=== PATIENT | female | born 1945 | race Caucasian/White ===

== ENCOUNTER 2022-03-06 13:00 | Outpatient (RCR) | payer OTHER, SELFPAY ==
[2022-02-11 13:47] VITALS: BP 160/69; PULSE 76; TEMP 35.7; BMI 34.9
--- NOTE | 2022-02-11 15:13 | HP.PCM_ITS ---
History of Present Illness Date of Service: 02/11/22 Chief Complaint: Non healing left anterior hip incision after hip replacement History of Wound: Patient had a hip replacement on 01/14/[address] Singh. She states that she has no pain and is walking well with a walker. Her left anterior hip incision last week. Two weeks postop the incision was intact but erythematous. The patient was initially were cleaning the incision with peroxide. They they were instructed to stop that at the two week follow up visit and instructed to keep the incision dry and covered. She has been taking Doxycycline since her surgery. Patient has history of osteoarthritis, Afib, cardiomyopathy, bilateral cataract, HTN. Her daughter states that the patient has had some vaginal bleeding since her surgery and she has had an ultrasound and their PCP, Dr. Heredia told them yesterday that he believes it is cancer and is being referring the patient to a specialist. Current wound care is a dry dressing. Patient denies fever, chills, nausea or vomiting. She states her appetite has been ok. [facility] Medical History (Updated 02/11/22 @ 16:17 by Maisha Fenton NP, GUEST SERVICES MANAGER-C) Atrial fibrillation Cardiomyopathy Cardiovascular disease Cataract Essential (primary) hypertension GERD (gastroesophageal reflux disease) Mitral valve regurgitation Osteoarthritis Right arm fracture Family History (Updated 02/11/22 @ 15:50 by Maisha Fenton NP, GUEST SERVICES MANAGER-C) Father Heart disease Mother Diabetes Sister Cancer Grandmother CVA (cerebral vascular accident) Surgical History History of left hip replacement Social History Smoking Status: Never smoker alcohol intake: never substance use type: does not use ROS Constitutional Constitutional: Denies fever(s), frequent falls or headache(s) Eyes Eyes: Reports requires corrective lenses ENT HEENT: Reports hearing loss Cardiovascular Cardiovascular: Reports pedal edema; Denies chest pain, dizziness or dyspnea Respiratory/Chest Respiratory/Chest: Denies change in mental status, chest congestion, cough, shortness of breath at rest or wheezing Gastrointestinal Gastrointestinal: Reports systems reviewed and no addt'l complaints, except as documented; Denies nausea or vomiting Musculoskeletal Musculoskeletal: Reports arthralgias, joint pain, joint stiffness and joint swelling Integumentary Integumentary: Reports erythema and wounds Neurologic Neurologic: Denies dizziness, frequent falls or headache(s) Psychiatric Psychiatric: Reports none Endocrine Endocrinology: Reports systems reviewed and no addt'l complaints, except as documented Hematologic/Lymphatic Hematologic/Lymphatic: Reports easy bleeding and easy bruising Vital Signs Vital Signs Vital Signs: 02/11/22 13:47 Temperature 96.3 F L Temperature Source Temporal Pulse Rate 76 Blood Pressure 160/69 H Blood Pressure Mean 99 Blood Pressure Source Monitor Weight Weight: 230 lb Body Mass Index (BMI) 34.9 Physical Exam Const alert and no apparent distress General Appearance: cooperative, comfortable and well kempt HEENT normocephalic HEENT Narrative: wears hearing aids and dentures Eyes Eyes Narrative: Wears glasses. Neck full ROM Resp normal respiratory effort, normal air movement and clear to auscultation bilaterally Effort and Inspection: able to speak in complete sentences Cardio regular rate and regular rhythm Peripheral Pulses: posterior tibial pulses present bilateral 1+ GI normal to inspection, nondistended, normoactive bowel sounds and soft to palpation Extremity Extremity Narrative: Left lower leg and ankle +3 pitting edema. Right leg and ankle has +2 pitting edema. Peripheral Pulses: Yes posterior tibial pulses present bilateral 1+ Skin Wound Narrative: Left anterior hip incision is erythematous, puffy, non painful to palpation. There are 3 incisional separations with a tunnel in the the proximal wound. There is a large amount of serosanguineous drainage coming from the proximal wound, as if there were a seroma present. The medial wound cluster and the distal wound are stable, there is some non viable tissue present. Neuro moves all extremities Sensorium / Orientation: awake, alert and oriented to person Psych mental status grossly normal, cooperative and affect normal Debridement Note Debridement Note Wound debrided: superior ulcer Laterality: Left Type of Debridement: Excisional debridement Anesthesia Used: 5% Lidocaine Gel Depth: Down to and including healthy tissue and in the subcutaneous layer Percentage of wound debrided: 100 Instrument Used: 3mm curette Tissue Removed: Non viable tissue and slough Severity: Fat Layer Exposed Amount of bleeding with debridement: Mild Bleeding Controlled with: Pressure and Compression and gauze Patient tolerated procedure: Patient tolerated procedure well Post-Debridement Measurements and Additional Note: Post-Debridement Measurements/Treatment WC - Nurse 1 - General Ulcer Assessment Start: 02/11/22 13:46 Freq: Status: Active Protocol: TATE Activity Type Activity Date Activity User E-sign Co-sign Detail Recorded Client Recorded Date Recorded By Document 02/11/22 13:47 OLGA LIDIA [id number] 02/11/22 14:00 [place] 02/11/22 13:47 WC - Today's Visit Information Type of service Initial Visit Arrival Mode Ambulatory, Walker Patient Identification Verified (Name & Yes ) Patient Requires Transmission-Based No Precautions Safety Precautions NA Height and Weight Height 5 ft 8 in Weight 230 lb Weight in Pounds 230.0 lbs Body Mass Index (BMI) 34.9 BMI Classification Obese BSA - Shahid 2.17 Vital Signs Temperature (97.8 F-99.1 F) 96.3 F L Temperature Source Temporal Pulse Rate (60-100) 76 Pulse Location Monitor Blood Pressure (90/60-120/80) 160/69 H Blood Pressure Mean 99 Source Monitor History Since Last Visit- (Skip if this is Patient's initial visit) Have you changed medications since your No last visit? Any new allergies or adverse reactions No Had a fall/change in ADL's that may No increase risk of falls Signs or symptoms of abuse and/or No neglect since last visit Have you been in the hospital since your No last visit? Has dressing in place as prescribed Yes Has compression in place as prescribed N/A Has offloadiing in place as prescribed N/A Experienced any changes in pain level or No management Left Footwear Regular Shoe Right Footwear Regular Shoe Pain Scale: 0-10 Numeric Is Patient Pain Free? Yes - Nurse 1 - General Ulcer Measurement Start: 02/11/22 13:46 Freq: Status: Active Protocol: Activity Type Activity Date Activity User E-sign Co-sign Detail Recorded Client Recorded Date Recorded By Document 02/11/22 13:47 OLGA LIDIA [id number] 02/11/22 14:00 OLGA LIDIA 02/11/22 13:47 Wound Center Nurse 1 #3 L distal thigh -Combined with other wound No -Current Size (cm) - Length 5.1 -Current Size (cm) - Width 1.6 -Current Size (cm) - Depth 0.7 -Total Square Cm 8.16 -Date of Last Picture (Recall this 02/11/22 field) -Photo Taken Yes -Epithelialization Medium 34-66% -Tunneling No -Undermining/Tunneling No -Circular Undermining No -Change in Wound Grade/Stage No -Exudate Amt Medium -Exudate Type Serosanguineous -Wound Margin Distinct, Outline Attached -Granulation Amt None Present (0 %) -Granulation Quality N/A -Slough/Fibrin No -Necrosis Amt None Present (0 %) -Necrotic Tissue Type Adherent Slough -Structure Exposed N/A -Texture (Emilie-wound Skin Appearance) Assessed, Scarring -Moisture (Emilie-wound Skin Appearance) No Abnormality, Assessed -Color (Emilie-wound Skin Appearance) No Abnormality, Assessed -Temperature (Emilie-wound Skin No Abnormality Appearance) (Pt Warm) -Tenderness on Palpation (Emilie-wound No Skin Appearance) -Ulcer Cleansing Soap and Water -Foul Odor after Cleansing No -Anesthetic Used 4% Lidocaine Solution,5% Lidocaine Gel #2 L middle thigh/hip -Combined with other wound No -Current Size (cm) - Length 3.9 -Current Size (cm) - Width 1.1 -Current Size (cm) - Depth 0.7 -Total Square Cm 4.29 -Date of Last Picture (Recall this 02/11/22 field) -Photo Taken Yes -Tunneling No -Undermining/Tunneling No -Circular Undermining No -Change in Wound Grade/Stage No -Exudate Amt Medium -Exudate Type Serosanguineous -Wound Margin Distinct, Outline Attached -Granulation Amt Small (1-33%) -Granulation Quality N/A -Slough/Fibrin No -Necrosis Amt Small (1-33%) -Necrotic Tissue Type Adherent Slough -Structure Exposed N/A -Texture (Emilie-wound Skin Appearance) Assessed, Scarring -Moisture (Emilie-wound Skin Appearance) No Abnormality, Assessed -Color (Emilie-wound Skin Appearance) No Abnormality, Assessed -Temperature (Emilie-wound Skin No Abnormality Appearance) (Pt Warm) -Tenderness on Palpation (Emilie-wound No Skin Appearance) -Ulcer Cleansing Soap and Water -Foul Odor after Cleansing No -Anesthetic Used 4% Lidocaine Solution,5% Lidocaine Gel #1 superior thigh/hip -Combined with other wound No -Current Size (cm) - Length 1.3 -Current Size (cm) - Width 1.1 -Current Size (cm) - Depth 3.7 -Total Square Cm 1.43 -Date of Last Picture (Recall this 02/11/22 field) -Photo Taken Yes -Epithelialization None Present -Tunneling No -Undermining/Tunneling No -Circular Undermining No -Change in Wound Grade/Stage No -Exudate Amt Large -Exudate Type Serosanguineous -Wound Margin Distinct, Outline Attached -Granulation Amt None Present (0 %) -Granulation Quality N/A -Slough/Fibrin Yes -Necrosis Amt Large (67-100%) -Necrotic Tissue Type Adherent Slough -Structure Exposed N/A -Texture (Emilie-wound Skin Appearance) Assessed, Scarring -Moisture (Emilie-wound Skin Appearance) Assessed, Weeping -Color (Emilie-wound Skin Appearance) No Abnormality, Assessed -Temperature (Emilie-wound Skin No Abnormality Appearance) (Pt Warm) -Tenderness on Palpation (Emilie-wound No Skin Appearance) -Ulcer Cleansing Soap and Water -Foul Odor after Cleansing No -Anesthetic Used 4% Lidocaine Solution,5% Lidocaine Gel WC - Nurse 2 - General Ulcer CM Notes Start: 02/11/22 13:46 Freq: Status: Active Protocol: Activity Type Activity Date Activity User E-sign Co-sign Detail Recorded Client Recorded Date Recorded By Document 02/11/22 14:12 [id number] 02/11/22 14:24 KAITLIN 02/11/22 14:12 Wound Center Nurse 2 #3 L distal thigh -Time 14:15 -Correct Patient Yes -Correct Side, Site, Position Yes -Correct Procedure Yes -Procedure Performed Yes -Type of Procedure Debridement -Clinical Debridement Subcutaneous -Tissue Removed Subcutaneous -Post Debridement (cm) - Length 2.2 -Post Debridement (cm) - Width 1.1 -Post Debridement (cm) - Depth 1.3 -Total Square (Post) (cm) 2.42 -Area of Debridement (cm) - Length 2.2 -Area of Debridement (cm) - Width 1.1 -Total Square (Area) (cm) 2.42 -Tunneling No -Undermining/Tunneling No -Circular Undermining No -Wound/Ulcer Outcome Not Healed -Ulcer Cleansing Rinsed/ Irrigated with Saline -Foul Odor after Cleansing No -Bioengineered Tissue No -Bleeding Controlled with Pressure -Treatment Response Procedure Tolerated Well -Offloading No -Debridement - Subq, 1st 20sq cm Yes #2 L middle thigh/hip -Time 14:15 -Correct Patient Yes -Correct Side, Site, Position Yes -Correct Procedure Yes -Procedure Performed Yes -Type of Procedure Debridement -Clinical Debridement Subcutaneous -Tissue Removed Subcutaneous -Post Debridement (cm) - Length 4.9 -Post Debridement (cm) - Width 1.8 -Post Debridement (cm) - Depth 0.9 -Total Square (Post) (cm) 8.82 -Area of Debridement (cm) - Length 4.9 -Area of Debridement (cm) - Width 1.8 -Total Square (Area) (cm) 8.82 -Tunneling No -Undermining/Tunneling No -Circular Undermining No -Wound/Ulcer Outcome Not Healed -Ulcer Cleansing Rinsed/ Irrigated with Saline -Foul Odor after Cleansing No -Bioengineered Tissue No -Bleeding Controlled with Pressure -Treatment Response Procedure Tolerated Well -Offloading No -Debridement - Subq, 1st 20sq cm No #1 superior thigh/hip -Time 14:15 -Correct Patient Yes -Correct Side, Site, Position Yes -Correct Procedure Yes -Procedure Performed Yes -Type of Procedure Debridement -Clinical Debridement Subcutaneous -Tissue Removed Subcutaneous -Post Debridement (cm) - Length 1.4 -Post Debridement (cm) - Width 1.0 -Post Debridement (cm) - Depth 4.0 -Total Square (Post) (cm) 1.40 -Area of Debridement (cm) - Length 1.4 -Area of Debridement (cm) - Width 1.0 -Total Square (Area) (cm) 1.40 -Tunneling No -Undermining/Tunneling No -Circular Undermining No -Wound/Ulcer Outcome Not Healed -Ulcer Cleansing Rinsed/ Irrigated with Saline -Foul Odor after Cleansing No -Bioengineered Tissue No -Bleeding Controlled with Pressure -Treatment Response Procedure Tolerated Well -Offloading No -Debridement - Subq, 1st 20sq cm No Pain Scale: 0-10 Numeric Is Patient Pain Free? Yes WC - Nurse 3 - General Ulcer D/C NN Start: 02/11/22 13:46 Freq: Status: Active Protocol: Activity Type Activity Date Activity User E-sign Co-sign Detail Recorded Client Recorded Date Recorded By Document 02/11/22 14:40 [facility] [id number] 02/11/22 14:42 [facility] 02/11/22 14:40 Wound Care Nurse 3 #3 L distal thigh -Ulcer Cleansing Rinsed/ Irrigated with Saline -Foul Odor after Cleansing No -Primary Dressing Applied Aquacel AG 4x4 -Primary Dressing Covered/Secured with Secured with Tape,Other -Other Covering ABD, DRSG 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 [place] 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 -Aquacel AG 4x4 1 #2 L middle thigh/hip -Ulcer Cleansing Rinsed/ Irrigated with Saline -Foul Odor after Cleansing No -Primary Dressing Applied Aquacel AG 4x4 -Other Dressing DRSG PER [place] 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 -Primary Dressing Covered/Secured with Secured with Tape -Other Covering ABD -Aquacel AG 4x4 0 #1 superior thigh/hip -Ulcer Cleansing Rinsed/ Irrigated with Saline -Foul Odor after Cleansing No -Primary Dressing Applied Aquacel AG 4x4 -Other Dressing WICKED INTO WOUND -Primary Dressing Covered/Secured with Secured with Tape,Other -Other Covering ABD; DRSG PER [place] 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 -Aquacel AG 4x4 0 Treatment Response Procedure Tolerated Well Pain Scale: 0-10 Numeric Is Patient Pain Free? Yes WC - Visit Discharge Discharge Condition Stable Ambulatory Status Ambulatory, Walker Transportation Private Auto Additional Wound Wound debrided: medial hip incion Laterality: Left Type of Debridement: Excisional debridement Anesthesia Used: 5% Lidocaine Gel Depth: Down to and including healthy tissue and in the subcutaneous layer Percentage of wound debrided: 100 Instrument Used: 5mm curette Tissue Removed: Non viable tissue and slough Severity: Fat Layer Exposed Amount of bleeding with debridement: Mild Bleeding Controlled with: Pressure and Compression and gauze Patient tolerated procedure: Patient tolerated procedure well Additional Wound Wound debrided: distal hip incision Laterality: Left Type of Debridement: Excisional debridement Anesthesia Used: 5% Lidocaine Gel Depth: Down to and including healthy tissue and in the subcutaneous layer Percentage of wound debrided: 100 Instrument Used: 5mm curette Tissue Removed: Non viable tissue and slough Severity: Fat Layer Exposed Amount of bleeding with debridement: Mild Bleeding Controlled with: Pressure and Compression and gauze Patient tolerated procedure: Patient tolerated procedure well Charges/Coding Visit Charges Office Visits / Consults: [id number] OV L4 New (25 modifier) Procedures Integumentary [id number]: [id number] Billie subq tissue 20 sq cm/< Assessment/Plan Assessment/Plan (1) Non-healing surgical wound: CODE(S): T81.89XA - Other complications of procedures, not elsewhere classified, initial encounter (2) History of left hip replacement: CODE(S): Z96.642 - Presence of left artificial hip joint (3) Current use of anticoagulant therapy: 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 A subcutaneous debridement was performed without difficulty. Patient has a left anterior hip incision with three areas of separation with the proximal wound draining a significant amount of serosanguineous drainage. Patient is currently taking Doxycycline prescribed from Dr. Singh. A wound culture was obtained today, 02/11/22, depending on the results of the culture, it may necessitate the need to change her antibiotic. Wound care - Wick Aquacel-Ag into the tunnel of the proximal wound. Place Aquacel-Ag into the base of the other two wounds, place ABD or super absorber pad over the wounds. Dressing changes should be performed daily after washing the area with soap and water. She is wearing bilateral lower leg compression stockings for compression. Encouraged increase protein intake and increasing Vitamin C intake. Patient has had vaginal bleeding since her hip replacement and they were told yesterday that her ultrasound was abnormal and it may be cancer. They are waiting to see a specialist to find out what the next step in this process is. Patient should follow up one week with Dr. Espinosa, but is not able to return on Thursday next week, so she can see me next week and see Dr. Espinosa the following week.
[2022-02-20 13:06] VITALS: BP 147/63; PULSE 62; RESP 16; TEMP 36.3; BMI 34.9
--- NOTE | 2022-02-20 15:15 | PCM.WC.PN ---
History of Present Illness Date of Service: 02/20/22 Chief Complaint: Non healing left anterior hip incision after hip replacement History of Wound: Patient had a hip replacement on 01/14/[address] Singh. She states that she has no pain and is walking well with a walker. Her left anterior hip incision last week. Two weeks postop the incision was intact but erythematous. The patient was initially were cleaning the incision with peroxide. They they were instructed to stop that at the two week follow up visit and instructed to keep the incision dry and covered. She has been taking Doxycycline since her surgery. Patient has history of osteoarthritis, Afib, cardiomyopathy, bilateral cataract, HTN. Her daughter states that the patient has had some vaginal bleeding since her surgery and she has had an ultrasound and their PCP, Dr. Heredia told them yesterday that he believes it is cancer and is being referring the patient to a specialist. Current wo Patient denies fever, chills, nausea or vomiting. She states her appetite has been ok. Objective Data Objective Data Vital Signs: Vital Signs Temp Pulse Resp BP O2 Del Method 97.3 F L 62 16 147/63 H Room Air 02/20/22 13:06 02/20/22 13:06 02/20/22 13:06 02/20/22 13:06 02/20/22 13:06 Oxygen Delivery Method Room Air Weight: 230 lb Body Mass Index (BMI) 34.9 Lab / Micro Data Micro: Microbiology 02/11/22 14:20 Wound Abcess - Hip Gram Stain - Final 02/11/22 14:20 Wound Abcess - Hip Wound Culture - Final Serratia fonticola Pseudomonas aeroginosa 02/11/22 14:20 Wound Abcess - Hip Anaerobic Culture - Final Anaerobic cocci Debridement Note Debridement Note Post-Debridement Measurements and Additional Note: Post-Debridement Measurements/Treatment WC - Nurse 1 - General Ulcer Assessment Start: 02/11/22 13:46 Freq: Status: Active Protocol: TATE Activity Type Activity Date Activity User E-sign Co-sign Detail Recorded Client Recorded Date Recorded By Document 02/11/22 13:47 AK [id number] 02/11/22 14:00 AK Document 02/20/22 13:06 [facility] [id number] 02/20/22 13:18 BMF 02/11/22 02/20/22 13:47 13:06 - Today's Visit Information Type of service Initial Visit Follow-up Visit (Physician/BEREAVEMENT PROGRAM COORDINATOR ) Arrival Mode Ambulatory, Ambulatory Walker Transfer Assistance None Accompanied by EMMA IN [facility] Patient Identification Verified (Name & Yes Yes ) Patient Requires Transmission-Based No No Precautions Safety Precautions NA Height and Weight Height 5 ft 8 in Weight 230 lb Weight in Pounds 230.0 lbs Body Mass Index (BMI) 34.9 34.9 BMI Classification Obese Obese BSA - Shahid 2.17 Vital Signs Temperature (97.8 F-99.1 F) 96.3 F L 97.3 F L Temperature Source Temporal Temporal Pulse Rate (60-100) 76 62 Pulse Location Monitor Monitor Respiratory Rate (12-18) 16 Respiratory rate source Observation Oxygen Delivery Method Room Air Blood Pressure (90/60-120/80) 160/69 H 147/63 H Blood Pressure Mean (mm Hg) 99 91 Source Monitor Monitor Position Sitting Blood Pressure Location Left Arm History Since Last Visit- (Skip if this is Patient's initial visit) Have you changed medications since your No No last visit? Any new allergies or adverse reactions No No Had a fall/change in ADL's that may No No increase risk of falls Signs or symptoms of abuse and/or No neglect since last visit Have you been in the hospital since your No No last visit? Has dressing in place as prescribed Yes Yes Has compression in place as prescribed N/A N/A Has offloadiing in place as prescribed N/A N/A Experienced any changes in pain level or No No management Left Footwear Regular Shoe Regular Shoe Right Footwear Regular Shoe Regular Shoe Pain Scale: 0-10 Numeric Is Patient Pain Free? Yes Yes - Nurse 1 - General Ulcer Measurement Start: 02/11/22 13:46 Freq: Status: Active Protocol: Activity Type Activity Date Activity User E-sign Co-sign Detail Recorded Client Recorded Date Recorded By Document 02/11/22 13:47 AR [id number] 02/11/22 14:00 AR Document 02/20/22 13:06 [facility] [id number] 02/20/22 13:18 [facility] 02/11/22 02/20/22 13:47 13:06 Wound Center Nurse 1 #3 L distal thigh -Combined with other wound No No -Current Size (cm) - Length 5.1 3.6 -Current Size (cm) - Width 1.6 1 -Current Size (cm) - Depth 0.7 0.5 -Total Square Cm 8.16 3.6 -Date of Last Picture (Recall this 02/11/22 field) -Photo Taken Yes No -Epithelialization Medium 34-66% None Present -Tunneling No No -Undermining/Tunneling No No -Circular Undermining No No -Change in Wound Grade/Stage No -Exudate Amt Medium Medium -Exudate Type Serosanguineous Serosanguineous -Wound Margin Distinct, Distinct, Outline Outline Attached Attached -Granulation Amt None Present (0 Large (67-100%) %) -Granulation Quality N/A Red -Slough/Fibrin No Yes -Necrosis Amt None Present (0 Small (1-33%) %) -Necrotic Tissue Type Adherent Slough Adherent Slough -Structure Exposed N/A -Texture (Emilie-wound Skin Appearance) Assessed, Assessed, Scarring Localized Edema ,Scarring -Moisture (Emilie-wound Skin Appearance) No Abnormality, Assessed Assessed -Color (Emilie-wound Skin Appearance) No Abnormality, Assessed, Assessed Erythema -Temperature (Emilie-wound Skin No Abnormality No Abnormality Appearance) (Pt Warm) (Pt Warm) -Tenderness on Palpation (Emilie-wound No No Skin Appearance) -Ulcer Cleansing Soap and Water Soap and Water -Foul Odor after Cleansing No No -Anesthetic Used 4% Lidocaine 4% Lidocaine Solution,5% Solution Lidocaine Gel #2 L middle thigh/hip -Combined with other wound No No -Current Size (cm) - Length 3.9 4.4 -Current Size (cm) - Width 1.1 1.3 -Current Size (cm) - Depth 0.7 0.4 -Total Square Cm 4.29 5.72 -Date of Last Picture (Recall this 02/11/22 field) -Photo Taken Yes No -Epithelialization None Present -Tunneling No No -Undermining/Tunneling No No -Circular Undermining No No -Change in Wound Grade/Stage No -Exudate Amt Medium Medium -Exudate Type Serosanguineous Serosanguineous -Wound Margin Distinct, Distinct, Outline Outline Attached Attached -Granulation Amt Small (1-33%) Large (67-100%) -Granulation Quality N/A [place] -Slough/Fibrin No Yes -Necrosis Amt Small (1-33%) Small (1-33%) -Necrotic Tissue Type Adherent Slough Adherent Slough -Structure Exposed N/A -Texture (Emilie-wound Skin Appearance) Assessed, Assessed, Scarring Localized Edema ,Scarring -Moisture (Emilie-wound Skin Appearance) No Abnormality, Assessed Assessed -Color (Emilie-wound Skin Appearance) No Abnormality, Assessed, Assessed Erythema -Temperature (Emilie-wound Skin No Abnormality No Abnormality Appearance) (Pt Warm) (Pt Warm) -Tenderness on Palpation (Emilie-wound No No Skin Appearance) -Ulcer Cleansing Soap and Water Soap and Water -Foul Odor after Cleansing No No -Anesthetic Used 4% Lidocaine 4% Lidocaine Solution,5% Solution Lidocaine Gel #1 superior thigh/hip -Combined with other wound No No -Current Size (cm) - Length 1.3 1 -Current Size (cm) - Width 1.1 0.4 -Current Size (cm) - Depth 3.7 3.1 -Total Square Cm 1.43 0.4 -Date of Last Picture (Recall this 02/11/22 field) -Photo Taken Yes No -Epithelialization None Present None Present -Tunneling No No -Undermining/Tunneling No No -Circular Undermining No No -Change in Wound Grade/Stage No -Exudate Amt Large Large -Exudate Type Serosanguineous Serosanguineous -Wound Margin Distinct, Distinct, Outline Outline Attached Attached -Granulation Amt None Present (0 Medium (34-66%) %) -Granulation Quality N/A Red -Slough/Fibrin Yes Yes -Necrosis Amt Large (67-100%) Medium (34-66%) -Necrotic Tissue Type Adherent Slough Adherent Slough -Structure Exposed N/A -Texture (Emilie-wound Skin Appearance) Assessed, Assessed, Scarring Localized Edema ,Scarring -Moisture (Emilie-wound Skin Appearance) Assessed, Assessed Weeping -Color (Emilie-wound Skin Appearance) No Abnormality, Assessed, Assessed Erythema -Temperature (Emilie-wound Skin No Abnormality No Abnormality Appearance) (Pt Warm) (Pt Warm) -Tenderness on Palpation (Emilie-wound No No Skin Appearance) -Ulcer Cleansing Soap and Water Soap and Water -Foul Odor after Cleansing No No -Anesthetic Used 4% Lidocaine 4% Lidocaine Solution,5% Solution Lidocaine Gel WC - Nurse 2 - General Ulcer CM Notes Start: 02/11/22 13:46 Freq: Status: Active Protocol: Activity Type Activity Date Activity User E-sign Co-sign Detail Recorded Client Recorded Date Recorded By Document 02/11/22 14:12 [id number] 02/11/22 14:24 JF Document 02/20/22 13:27 MW [id number] 02/20/22 13:35 MW 02/11/22 02/20/22 14:12 13:27 Wound Center Nurse 2 #3 L distal thigh -Time 14:15 13:28 -Correct Patient Yes Yes -Correct Side, Site, Position Yes Yes -Correct Procedure Yes Yes -Procedure Performed Yes Yes -Type of Procedure Debridement Debridement -Clinical Debridement Subcutaneous Subcutaneous -Tissue Removed Subcutaneous Subcutaneous -Post Debridement (cm) - Length 2.2 3.0 -Post Debridement (cm) - Width 1.1 1.1 -Post Debridement (cm) - Depth 1.3 0.9 -Total Square (Post) (cm) 2.42 3.30 -Area of Debridement (cm) - Length 2.2 3.0 -Area of Debridement (cm) - Width 1.1 1.1 -Total Square (Area) (cm) 2.42 3.30 -Tunneling No No -Undermining/Tunneling No No -Circular Undermining No No -Wound/Ulcer Outcome Not Healed Not Healed -Ulcer Cleansing Rinsed/ Rinsed/ Irrigated with Irrigated with Saline Saline -Foul Odor after Cleansing No No -Bioengineered Tissue No No -Bleeding Controlled with Pressure Pressure -Treatment Response Procedure Procedure Tolerated Well Tolerated Well -Offloading No No -Debridement - Subq, 1st 20sq cm Yes Yes #2 L middle thigh/hip -Time 14:15 13:28 -Correct Patient Yes Yes -Correct Side, Site, Position Yes Yes -Correct Procedure Yes Yes -Procedure Performed Yes Yes -Type of Procedure Debridement Debridement -Clinical Debridement Subcutaneous Subcutaneous -Tissue Removed Subcutaneous Subcutaneous -Post Debridement (cm) - Length 4.9 4.5 -Post Debridement (cm) - Width 1.8 1.5 -Post Debridement (cm) - Depth 0.9 0.6 -Total Square (Post) (cm) 8.82 6.75 -Area of Debridement (cm) - Length 4.9 4.5 -Area of Debridement (cm) - Width 1.8 1.5 -Total Square (Area) (cm) 8.82 6.75 -Tunneling No No -Undermining/Tunneling No No -Circular Undermining No No -Wound/Ulcer Outcome Not Healed Not Healed -Ulcer Cleansing Rinsed/ Rinsed/ Irrigated with Irrigated with Saline Saline -Foul Odor after Cleansing No No -Bioengineered Tissue No No -Bleeding Controlled with Pressure Pressure -Treatment Response Procedure Procedure Tolerated Well Tolerated Well -Offloading No No -Debridement - Subq, 1st 20sq cm No No #1 superior thigh/hip -Time 14:15 13:29 -Correct Patient Yes Yes -Correct Side, Site, Position Yes Yes -Correct Procedure Yes Yes -Procedure Performed Yes Yes -Type of Procedure Debridement Debridement -Clinical Debridement Subcutaneous Subcutaneous -Tissue Removed Subcutaneous Subcutaneous -Post Debridement (cm) - Length 1.4 1.1 -Post Debridement (cm) - Width 1.0 0.8 -Post Debridement (cm) - Depth 4.0 3.0 -Total Square (Post) (cm) 1.40 0.88 -Area of Debridement (cm) - Length 1.4 1.1 -Area of Debridement (cm) - Width 1.0 0.8 -Total Square (Area) (cm) 1.40 0.88 -Tunneling No No -Undermining/Tunneling No No -Circular Undermining No No -Wound/Ulcer Outcome Not Healed Not Healed -Ulcer Cleansing Rinsed/ Rinsed/ Irrigated with Irrigated with Saline Saline -Foul Odor after Cleansing No No -Bioengineered Tissue No No -Bleeding Controlled with Pressure Pressure -Treatment Response Procedure Procedure Tolerated Well Tolerated Well -Offloading No No -Debridement - Subq, 1st 20sq cm No No Pain Scale: 0-10 Numeric Is Patient Pain Free? Yes Yes WC - Nurse 3 - General Ulcer D/C NN Start: 02/11/22 13:46 Freq: Status: Active Protocol: Activity Type Activity Date Activity User E-sign Co-sign Detail Recorded Client Recorded Date Recorded By Document 02/11/22 14:40 [facility] [id number] 02/11/22 14:42 BMF Document 02/20/22 13:50 DL [id number] 02/20/22 13:51 DL 02/11/22 02/20/22 14:40 13:50 Wound Care Nurse 3 #3 L distal thigh -Ulcer Cleansing Rinsed/ Rinsed/ Irrigated with Irrigated with Saline Saline -Foul Odor after Cleansing No No -Primary Dressing Applied Aquacel AG 4x4 Aquacel AG 4x4 -Primary Dressing Covered/Secured with Secured with Secured with Tape,Other Tape -Other Covering ABD, DRSG PER ABD [place] [employer] -Aquacel AG 4x4 1 1 #2 L middle thigh/hip -Ulcer Cleansing Rinsed/ Rinsed/ Irrigated with Irrigated with Saline Saline -Foul Odor after Cleansing No No -Primary Dressing Applied Aquacel AG 4x4 -Other Dressing DRSG PER [place] [employer] Aquacel Ag -Primary Dressing Covered/Secured with Secured with Secured with Tape Tape -Other Covering ABD ABD -Aquacel AG 4x4 0 #1 superior thigh/hip -Ulcer Cleansing Rinsed/ Rinsed/ Irrigated with Irrigated with Saline Saline -Foul Odor after Cleansing No No -Primary Dressing Applied Aquacel AG 4x4 -Other Dressing WICKED INTO aquacel Ag WOUND -Primary Dressing Covered/Secured with Secured with Secured with Tape,Other Tape -Other Covering ABD; DRSG PER ABD [place] [employer] -Aquacel AG 4x4 0 Treatment Response Procedure Procedure Tolerated Well Tolerated Well Pain Scale: 0-10 Numeric Is Patient Pain Free? Yes Yes WC - Visit Discharge Discharge Condition Stable Stable Ambulatory Status Ambulatory, Ambulatory, Walker Walker Transportation Private Auto Private Auto
[2022-03-06 13:15] VITALS: BP 167/74; PULSE 72; TEMP 35.6; BMI 34.9
--- NOTE | 2022-03-06 16:16 | PN.PCM_ITS ---
History of Present Illness Date of Service: 03/06/22 Chief Complaint: Non healing left anterior hip incision after hip replacement History of Wound: Patient had a hip replacement on 01/14/[address] Singh. She states that she has no pain and is walking well with a walker. Her left anterior hip incision last week. Two weeks postop the incision was intact but erythematous. The patient was initially were cleaning the incision with peroxide. They they were instructed to stop that at the two week follow up visit and instructed to keep the incision dry and covered. She has been taking Doxycycline since her surgery. Patient has history of osteoarthritis, Afib, cardiomyopathy, bilateral cataract, HTN. Her daughter states that the patient has had some vaginal bleeding since her surgery and she has had an ultrasound and their PCP, Dr. Heredia told them that he believes it is cancer and is being referring the patient to a specialist. Wound care - Aquacel-Ag to all three left hip ulcers and packed into the base of the superior hip ulcer, cover with ABD. Patient denies fever, chills, nausea or vomiting. She states her appetite has been ok. Progress of Wound: All three ulcers improved. Middle and distal ulcers are superficial. Objective Data Objective Data Vital Signs: Vital Signs Temp Pulse Resp BP O2 Del Method 96.1 F L 72 16 167/74 H Room Air 03/06/22 13:15 03/06/22 13:15 02/20/22 13:06 03/06/22 13:15 02/20/22 13:06 Oxygen Delivery Method Room Air Weight: 230 lb Body Mass Index (BMI) 34.9 Lab / Micro Data Micro: Microbiology 02/11/22 14:20 Wound Abcess - Hip Gram Stain - Final 02/11/22 14:20 Wound Abcess - Hip Wound Culture - Final Serratia fonticola Pseudomonas aeroginosa 02/11/22 14:20 Wound Abcess - Hip Anaerobic Culture - Final Anaerobic cocci Charges/Coding Procedures Integumentary [id number]: [id number] Billie subq tissue 20 sq cm/< Physical Exam Const alert General Appearance: cooperative and well kempt Resp normal respiratory effort Effort and Inspection: able to speak in complete sentences Cardio regular rate Peripheral Pulses: posterior tibial pulses present bilateral 1+ Extremity Extremity Narrative: Bilateral lower leg edema. Peripheral Pulses: Yes posterior tibial pulses present bilateral 1+ Skin Wound Narrative: Left anterior hip incision with 3 separations, the erythema has resolved. There continues to be depth on the superior wound, the middle and distal wounds are superficial depth. Neuro moves all extremities Sensorium / Orientation: awake and alert Psych mental status grossly normal Debridement Note Debridement Note Wound debrided: superior hip wound Laterality: Left Type of Debridement: Excisional debridement Anesthesia Used: 5% Lidocaine Gel Depth: Down to and including healthy tissue and in the subcutaneous layer Percentage of wound debrided: 100 Instrument Used: 3mm curette Tissue Removed: Non viable tissue and slough Severity: Fat Layer Exposed Amount of bleeding with debridement: Mild Bleeding Controlled with: Pressure and Compression and gauze Patient tolerated procedure: Patient tolerated procedure well Post-Debridement Measurements and Additional Note: Post-Debridement Measurements/Treatment - Nurse 1 - General Ulcer Assessment Start: 02/11/22 13:46 Freq: Status: Active Protocol: TATE Activity Type Activity Date Activity User E-sign Co-sign Detail Recorded Client Recorded Date Recorded By Document 02/11/22 13:47 MS [id number] 02/11/22 14:00 MS Document 02/20/22 13:06 [facility] [id number] 02/20/22 13:18 [facility] Document 03/06/22 13:15 MS [id number] 03/06/22 13:20 MS 02/11/22 02/20/22 03/06/22 13:47 13:06 13:15 - Today's Visit Information Type of service Initial Visit Follow-up Visit Follow-up Visit (Physician/BRIQUETTE MACHINE OPERATOR HELPER (Physician/BRIQUETTE MACHINE OPERATOR HELPER ) ) Arrival Mode Ambulatory, Ambulatory Walker Walker Transfer Assistance None Accompanied by EMMA IN LAW Patient Identification Verified (Name & Yes Yes Yes ) Patient Requires Transmission-Based No No No Precautions Safety Precautions NA NA Height and Weight Height 5 ft 8 in Weight 230 lb Weight in Pounds 230.0 lbs Body Mass Index (BMI) 34.9 34.9 34.9 BMI Classification Obese Obese Obese BSA - Shahid 2.17 Vital Signs Temperature (97.8 F-99.1 F) 96.3 F L 97.3 F L 96.1 F L Temperature Source Temporal Temporal Temporal Pulse Rate (60-100) 76 62 72 Pulse Location Monitor Monitor Monitor Respiratory Rate (12-18) 16 Respiratory rate source Observation Oxygen Delivery Method Room Air Blood Pressure (90/60-120/80) 160/69 H 147/63 H 167/74 H Blood Pressure Mean (mm Hg) 99 91 105 Source Monitor Monitor Monitor Position Sitting Blood Pressure Location Left Arm History Since Last Visit- (Skip if this is Patient's initial visit) Have you changed medications since your No No No last visit? Any new allergies or adverse reactions No No No Had a fall/change in ADL's that may No No No increase risk of falls Signs or symptoms of abuse and/or No No neglect since last visit Have you been in the hospital since your No No No last visit? Has dressing in place as prescribed Yes Yes Yes Has compression in place as prescribed N/A N/A N/A Has offloadiing in place as prescribed N/A N/A N/A Experienced any changes in pain level or No No No management Left Footwear Regular Shoe Regular Shoe Regular Shoe Right Footwear Regular Shoe Regular Shoe Regular Shoe Pain Scale: 0-10 Numeric Is Patient Pain Free? Yes Yes Yes - Nurse 1 - General Ulcer Measurement Start: 02/11/22 13:46 Freq: Status: Active Protocol: Activity Type Activity Date Activity User E-sign Co-sign Detail Recorded Client Recorded Date Recorded By Document 02/11/22 13:47 MS [id number] 02/11/22 14:00 MS Document 02/20/22 13:06 [facility] [id number] 02/20/22 13:18 [facility] Document 03/06/22 13:15 MS [id number] 03/06/22 13:20 MS 02/11/22 02/20/22 03/06/22 13:47 13:06 13:15 Wound Center Nurse 1 #3 L distal thigh -Combined with other wound No No No -Current Size (cm) - Length 5.1 3.6 2.5 -Current Size (cm) - Width 1.6 1 1.3 -Current Size (cm) - Depth 0.7 0.5 0.2 -Total Square Cm 8.16 3.6 3.25 -Date of Last Picture (Recall this 02/11/22 field) -Photo Taken Yes No No -Epithelialization Medium 34-66% None Present -Tunneling No No No -Undermining/Tunneling No No No -Circular Undermining No No No -Change in Wound Grade/Stage No No -Exudate Amt Medium Medium Large -Exudate Type Serosanguineous Serosanguineous Serosanguineous -Wound Margin Distinct, Distinct, Distinct, Outline Outline Outline Attached Attached Attached -Granulation Amt None Present (0 Large (67-100%) Large (67-100%) %) -Granulation Quality N/A Red [place],Red -Slough/Fibrin No Yes Yes -Necrosis Amt None Present (0 Small (1-33%) Small (1-33%) %) -Necrotic Tissue Type Adherent Slough Adherent Slough Adherent Slough -Structure Exposed N/A N/A -Texture (Emilie-wound Skin Appearance) Assessed, Assessed, No Abnormality, Scarring Localized Edema Assessed ,Scarring -Moisture (Emilie-wound Skin Appearance) No Abnormality, Assessed No Abnormality, Assessed Assessed -Color (Emilie-wound Skin Appearance) No Abnormality, Assessed, No Abnormality, Assessed Erythema Assessed -Temperature (Emilie-wound Skin No Abnormality No Abnormality No Abnormality Appearance) (Pt Warm) (Pt Warm) (Pt Warm) -Tenderness on Palpation (Emilie-wound No No No Skin Appearance) -Ulcer Cleansing Soap and Water Soap and Water Soap and Water -Foul Odor after Cleansing No No No -Anesthetic Used 4% Lidocaine 4% Lidocaine 5% Lidocaine Solution,5% Solution Gel Lidocaine Gel #2 L middle thigh/hip -Combined with other wound No No No -Current Size (cm) - Length 3.9 4.4 4 -Current Size (cm) - Width 1.1 1.3 1.1 -Current Size (cm) - Depth 0.7 0.4 0.2 -Total Square Cm 4.29 5.72 4.4 -Date of Last Picture (Recall this 02/11/22 field) -Photo Taken Yes No No -Epithelialization None Present -Tunneling No No No -Undermining/Tunneling No No No -Circular Undermining No No No -Change in Wound Grade/Stage No No -Exudate Amt Medium Medium Medium -Exudate Type Serosanguineous Serosanguineous Serosanguineous -Wound Margin Distinct, Distinct, Distinct, Outline Outline Outline Attached Attached Attached -Granulation Amt Small (1-33%) Large (67-100%) Large (67-100%) -Granulation Quality N/A [place],Red -Slough/Fibrin No Yes Yes -Necrosis Amt Small (1-33%) Small (1-33%) Small (1-33%) -Necrotic Tissue Type Adherent Slough Adherent Slough Adherent Slough -Structure Exposed N/A N/A -Texture (Emilie-wound Skin Appearance) Assessed, Assessed, No Abnormality, Scarring Localized Edema Assessed ,Scarring -Moisture (Emilie-wound Skin Appearance) No Abnormality, Assessed No Abnormality, Assessed Assessed -Color (Emilie-wound Skin Appearance) No Abnormality, Assessed, No Abnormality, Assessed Erythema Assessed -Temperature (Emilie-wound Skin No Abnormality No Abnormality No Abnormality Appearance) (Pt Warm) (Pt Warm) (Pt Warm) -Tenderness on Palpation (Emilie-wound No No No Skin Appearance) -Ulcer Cleansing Soap and Water Soap and Water Rinsed/ Irrigated with Saline -Foul Odor after Cleansing No No No -Anesthetic Used 4% Lidocaine 4% Lidocaine 5% Lidocaine Solution,5% Solution Gel Lidocaine Gel #1 superior thigh/hip -Combined with other wound No No No -Current Size (cm) - Length 1.3 1 1 -Current Size (cm) - Width 1.1 0.4 0.5 -Current Size (cm) - Depth 3.7 3.1 2.8 -Total Square Cm 1.43 0.4 0.5 -Date of Last Picture (Recall this 02/11/22 field) -Photo Taken Yes No No -Epithelialization None Present None Present -Tunneling No No No -Undermining/Tunneling No No No -Circular Undermining No No No -Change in Wound Grade/Stage No No -Exudate Amt Large Large Medium -Exudate Type Serosanguineous Serosanguineous Serosanguineous -Wound Margin Distinct, Distinct, Distinct, Outline Outline Outline Attached Attached Attached -Granulation Amt None Present (0 Medium (34-66%) Medium (34-66%) %) -Granulation Quality N/A Red [place],Red -Slough/Fibrin Yes Yes Yes -Necrosis Amt Large (67-100%) Medium (34-66%) Small (1-33%) -Necrotic Tissue Type Adherent Slough Adherent Slough Adherent Slough -Structure Exposed N/A N/A -Texture (Emilie-wound Skin Appearance) Assessed, Assessed, No Abnormality, Scarring Localized Edema Assessed ,Scarring -Moisture (Emilie-wound Skin Appearance) Assessed, Assessed No Abnormality, Weeping Assessed -Color (Emilie-wound Skin Appearance) No Abnormality, Assessed, No Abnormality, Assessed Erythema Assessed -Temperature (Emilie-wound Skin No Abnormality No Abnormality No Abnormality Appearance) (Pt Warm) (Pt Warm) (Pt Warm) -Tenderness on Palpation (Emilie-wound No No No Skin Appearance) -Ulcer Cleansing Soap and Water Soap and Water Rinsed/ Irrigated with Saline -Foul Odor after Cleansing No No No -Anesthetic Used 4% Lidocaine 4% Lidocaine 5% Lidocaine Solution,5% Solution Gel Lidocaine Gel WC - Nurse 2 - General Ulcer CM Notes Start: 02/11/22 13:46 Freq: Status: Active Protocol: Activity Type Activity Date Activity User E-sign Co-sign Detail Recorded Client Recorded Date Recorded By Document 02/11/22 14:12 JF [id number] 02/11/22 14:24 JF Document 02/20/22 13:27 MW [id number] 02/20/22 13:35 MW Document 03/06/22 15:51 PL [id number] 03/06/22 15:54 PL 02/11/22 02/20/22 03/06/22 14:12 13:27 15:51 Wound Center Nurse 2 #3 L distal thigh -Time 14:15 13:28 13:30 -Correct Patient Yes Yes Yes -Correct Side, Site, Position Yes Yes Yes -Correct Procedure Yes Yes Yes -Procedure Performed Yes Yes Yes -Type of Procedure Debridement Debridement Debridement -Clinical Debridement Subcutaneous Subcutaneous Subcutaneous -Tissue Removed Subcutaneous Subcutaneous Subcutaneous -Post Debridement (cm) - Length 2.2 3.0 2.2 -Post Debridement (cm) - Width 1.1 1.1 1.5 -Post Debridement (cm) - Depth 1.3 0.9 0.5 -Total Square (Post) (cm) 2.42 3.30 3.30 -Area of Debridement (cm) - Length 2.2 3.0 2.2 -Area of Debridement (cm) - Width 1.1 1.1 1.5 -Total Square (Area) (cm) 2.42 3.30 3.30 -Tunneling No No No -Undermining/Tunneling No No No -Circular Undermining No No No -Wound/Ulcer Outcome Not Healed Not Healed Not Healed -Ulcer Cleansing Rinsed/ Rinsed/ Rinsed/ Irrigated with Irrigated with Irrigated with Saline Saline Saline -Foul Odor after Cleansing No No No -Bioengineered Tissue No No No -Bleeding Controlled with Pressure Pressure Pressure -Treatment Response Procedure Procedure Procedure Tolerated Well Tolerated Well Tolerated Well -Offloading No No -Debridement - Subq, 1st 20sq cm Yes Yes No #2 L middle thigh/hip -Time 14:15 13:28 13:30 -Correct Patient Yes Yes Yes -Correct Side, Site, Position Yes Yes Yes -Correct Procedure Yes Yes Yes -Procedure Performed Yes Yes Yes -Type of Procedure Debridement Debridement Debridement -Clinical Debridement Subcutaneous Subcutaneous Subcutaneous -Tissue Removed Subcutaneous Subcutaneous Subcutaneous -Post Debridement (cm) - Length 4.9 4.5 3.8 -Post Debridement (cm) - Width 1.8 1.5 1.4 -Post Debridement (cm) - Depth 0.9 0.6 0.5 -Total Square (Post) (cm) 8.82 6.75 5.32 -Area of Debridement (cm) - Length 4.9 4.5 3.8 -Area of Debridement (cm) - Width 1.8 1.5 1.4 -Total Square (Area) (cm) 8.82 6.75 5.32 -Tunneling No No No -Undermining/Tunneling No No No -Circular Undermining No No No -Wound/Ulcer Outcome Not Healed Not Healed Not Healed -Ulcer Cleansing Rinsed/ Rinsed/ Rinsed/ Irrigated with Irrigated with Irrigated with Saline Saline Saline -Foul Odor after Cleansing No No No -Bioengineered Tissue No No No -Bleeding Controlled with Pressure Pressure Pressure -Treatment Response Procedure Procedure Procedure Tolerated Well Tolerated Well Tolerated Well -Offloading No No -Debridement - Subq, 1st 20sq cm No No No #1 superior thigh/hip -Time 14:15 13:29 13:30 -Correct Patient Yes Yes Yes -Correct Side, Site, Position Yes Yes Yes -Correct Procedure Yes Yes Yes -Procedure Performed Yes Yes Yes -Type of Procedure Debridement Debridement Debridement -Clinical Debridement Subcutaneous Subcutaneous Subcutaneous -Tissue Removed Subcutaneous Subcutaneous Subcutaneous -Post Debridement (cm) - Length 1.4 1.1 1.0 -Post Debridement (cm) - Width 1.0 0.8 0.5 -Post Debridement (cm) - Depth 4.0 3.0 2.3 -Total Square (Post) (cm) 1.40 0.88 0.50 -Area of Debridement (cm) - Length 1.4 1.1 1.0 -Area of Debridement (cm) - Width 1.0 0.8 0.5 -Total Square (Area) (cm) 1.40 0.88 0.50 -Tunneling No No No -Undermining/Tunneling No No No -Circular Undermining No No No -Wound/Ulcer Outcome Not Healed Not Healed Not Healed -Ulcer Cleansing Rinsed/ Rinsed/ Rinsed/ Irrigated with Irrigated with Irrigated with Saline Saline Saline -Foul Odor after Cleansing No No No -Bioengineered Tissue No No No -Bleeding Controlled with Pressure Pressure Pressure -Treatment Response Procedure Procedure Procedure Tolerated Well Tolerated Well Tolerated Well -Offloading No No -Debridement - Subq, 1st 20sq cm No No Yes Pain Scale: 0-10 Numeric Is Patient Pain Free? Yes Yes Yes WC - Nurse 3 - General Ulcer D/C NN Start: 02/11/22 13:46 Freq: Status: Active Protocol: Activity Type Activity Date Activity User E-sign Co-sign Detail Recorded Client Recorded Date Recorded By Document 02/11/22 14:40 [facility] [id number] 02/11/22 14:42 [facility] Document 02/20/22 13:50 DL [id number] 02/20/22 13:51 DL Document 03/06/22 13:48 KR [id number] 03/06/22 13:48 KR 02/11/22 02/20/22 03/06/22 14:40 13:50 13:48 Wound Care Nurse 3 #3 L distal thigh -Ulcer Cleansing Rinsed/ Rinsed/ Rinsed/ Irrigated with Irrigated with Irrigated with Saline Saline Saline -Foul Odor after Cleansing No No -Primary Dressing Applied Aquacel AG 4x4 Aquacel AG 4x4 Aquacel AG 4x4 -Other Dressing abd pad -Primary Dressing Covered/Secured with Secured with Secured with Dry Gauze, Tape,Other Tape Secured with Tape -Other Covering ABD, DRSG PER ABD [place] FISCAL ACCOUNTANT -Aquacel AG 4x4 1 1 1 #2 L middle thigh/hip -Ulcer Cleansing Rinsed/ Rinsed/ Irrigated with Irrigated with Saline Saline -Foul Odor after Cleansing No No -Primary Dressing Applied Aquacel AG 4x4 -Other Dressing DRSG PER [place] FISCAL ACCOUNTANT Aquacel Ag -Primary Dressing Covered/Secured with Secured with Secured with Tape Tape -Other Covering ABD ABD -Aquacel AG 4x4 0 #1 superior thigh/hip -Ulcer Cleansing Rinsed/ Rinsed/ Irrigated with Irrigated with Saline Saline -Foul Odor after Cleansing No No -Primary Dressing Applied Aquacel AG 4x4 -Other Dressing WICKED INTO aquacel Ag WOUND -Primary Dressing Covered/Secured with Secured with Secured with Tape,Other Tape -Other Covering ABD; DRSG PER ABD [place] FISCAL ACCOUNTANT -Aquacel AG 4x4 0 Treatment Response Procedure Procedure Tolerated Well Tolerated Well Pain Scale: 0-10 Numeric Is Patient Pain Free? Yes Yes Yes WC - Visit Discharge Discharge Condition Stable Stable Stable Ambulatory Status Ambulatory, Ambulatory, Ambulatory, Walker Walker Walker Transportation Private Auto Private Auto Private Auto Additional Wound Wound debrided: medial hip wound Laterality: Left Type of Debridement: Excisional debridement Anesthesia Used: 5% Lidocaine Gel Depth: Down to and including healthy tissue and in the subcutaneous layer Percentage of wound debrided: 100 Instrument Used: 5mm curette Tissue Removed: Non viable tissue and slough Severity: Fat Layer Exposed Amount of bleeding with debridement: Mild Bleeding Controlled with: Pressure and Compression and gauze Patient tolerated procedure: Patient tolerated procedure well Additional Wound Wound debrided: distal hip incisional wound Laterality: Left Type of Debridement: Excisional debridement Anesthesia Used: 5% Lidocaine Gel Depth: Down to and including healthy tissue and in the subcutaneous layer Percentage of wound debrided: 100 Instrument Used: 5mm curette Tissue Removed: Non viable tissue and slough Severity: Fat Layer Exposed Amount of bleeding with debridement: Mild Bleeding Controlled with: Pressure and Compression and gauze Patient tolerated procedure: Patient tolerated procedure well Assessment/Plan Assessment/Plan (1) Non-healing surgical wound: CODE(S): T81.89XA - Other complications of procedures, not elsewhere classified, initial encounter (2) History of left hip replacement: CODE(S): Z96.642 - Presence of left artificial hip joint (3) Current use of anticoagulant therapy: CODE(S): Z79.01 - snf (current) use of anticoagulants (4) Edema of both lower extremities: CODE(S): R60.0 - Localized edema PLAN: Plan Patient was evaluated at the wound center today.? A subcutaneous debridement was performed as documented. Patient has a left anterior? hip incision with three areas of separation with the proximal wound draining serosanguineous drainage. A wound culture was obtained on 02/11/22 which was positive for Serratia fonticola, Pseudomonas aeroginosa and Anaerobic cocci.? Will start her on Levaquin and flagyl. Wound care - Wick Aquacel-Ag into the tunnel of the proximal wound.? Place Aquacel-Ag into the base of the other two wounds, place ABD or super absorber pad over the wounds.? Dressing changes should be performed daily after washing the area with soap and water. She is wearing bilateral lower leg compression stockings for compression. Encouraged increase protein intake and increasing Vitamin C intake. Patient has had vaginal bleeding since her hip replacement and they were told yesterday that her ultrasound was abnormal and it may be cancer.? They are waiting to see a specialist to find out what the next step in this process is. She had an appointment with Dr. Singh last week and he said to continue the wound care. Follow up 2 weeks, due to her having other doctor appointments.
== END 2022-03-12 23:59 | disposition home or self-care (01) ==
LOC: WC 13:00
PROVIDERS: PCP Family Medicine; Referring Provider Physician Assistant Surgical; Visit Provider Nurse Practitioner Family
DX: T81.89XA Other complications of procedures, not elsewhere classified, initial encounter (principal); L97.822 Non-pressure chronic ulcer of other part of left lower leg with fat layer exposed; I42.9 Cardiomyopathy, unspecified; I48.91 Unspecified atrial fibrillation; I10 Essential (primary) hypertension; R60.0 Localized edema; M19.90 Unspecified osteoarthritis, unspecified site; Z79.01 Long term (current) use of anticoagulants; Z96.642 Presence of left artificial hip joint
CPT/HCPCS: 11042; 87070; 87075; 87077; 87186; 87205; 99213; G0463

== ENCOUNTER 2022-04-10 13:15 | Outpatient (RCR) | payer OTHER, SELFPAY ==
[2022-03-13 00:09] VITALS: BP 167/74; PULSE 72; RESP 16; TEMP 35.6; BMI 34.9
[2022-03-20 12:58] VITALS: BP 152/68; PULSE 71; RESP 16; TEMP 36.2; BMI 34.9
--- NOTE | 2022-03-20 13:52 | PN.PCM_ITS ---
History of Present Illness Date of Service: 03/20/22 Chief Complaint: Non healing left anterior hip incision after hip replacement History of Wound: Patient is a 77 year old female who had a hip replacement on 01/14/[address] Singh. She states that she has no pain and is walking well with a walker. Her left anterior hip incision last week. Two weeks postop the incision was intact but erythematous. The patient was initially were cleaning the incision with peroxide. They they were instructed to stop that at the two week follow up visit and instructed to keep the incision dry and covered. She has been taking Doxycycline since her surgery. Patient has history of osteoarthritis, Afib, cardiomyopathy, bilateral cataract, HTN. Her daughter states that the patient has had some vaginal bleeding since her surgery and she has had an ultrasound and their PCP, Dr. Heredia told them that he believes it is cancer and is being referring the patient to a specialist. Wound care - Aquacel-Ag to the superior hip ulcer and collagen hydrogel to the middle and distal ulcers, cover with gauze. Patient denies fever, chills, nausea or vomiting. She states her appetite has been ok. Progress of Wound: Left hip superior ulcer is smaller and the tunnel has less depth. The left hip middle and distal ulcers are almost healed. Objective Data Objective Data Vital Signs: Vital Signs Temp Pulse Resp BP O2 Del Method 97.2 F L 71 16 152/68 H Room Air 03/20/22 12:58 03/20/22 12:58 03/20/22 12:58 03/20/22 12:58 03/20/22 12:58 Oxygen Delivery Method Room Air Weight: 230 lb Body Mass Index (BMI) 34.9 Charges/Coding Procedures Integumentary 111xxx-113xx: 16228 Billie subq tissue 20 sq cm/< Physical Exam Const alert General Appearance: cooperative and well kempt Resp normal respiratory effort Effort and Inspection: able to speak in complete sentences Cardio regular rate Extremity Extremity Narrative: Bilateral lower leg edema. Skin Wound Narrative: Left anterior hip incision with 3 separations, the erythema has resolved. Left hip superior ulcer is smaller and the tunnel has less depth. The left hip middle and distal ulcers are almost healed. Neuro moves all extremities Sensorium / Orientation: awake and alert Psych mental status grossly normal Debridement Note Debridement Note Wound debrided: superior hip wound Laterality: Left Type of Debridement: Excisional debridement Anesthesia Used: 5% Lidocaine Gel Depth: Down to and including healthy tissue and in the subcutaneous layer Percentage of wound debrided: 100 Instrument Used: 3mm curette Tissue Removed: Non viable tissue and slough Severity: Fat Layer Exposed Amount of bleeding with debridement: Mild Bleeding Controlled with: Pressure and Compression and gauze Patient tolerated procedure: Patient tolerated procedure well Post-Debridement Measurements and Additional Note: Post-Debridement Measurements/Treatment - Nurse 1 - General Ulcer Assessment Start: 03/20/22 12:58 Freq: Status: Active Protocol: TATE Activity Type Activity Date Activity User E-sign Co-sign Detail Recorded Client Recorded Date Recorded By Document 03/20/22 12:58 [facility] [id number] 03/20/22 13:05 [facility] 03/20/22 12:58 WC - Today's Visit Information Type of service Follow-up Visit (Physician/[employer] ) Arrival Mode Ambulatory, Walker Transfer Assistance None Accompanied by DAUGHTER Patient Identification Verified (Name & Yes ) Patient Requires Transmission-Based No Precautions Height and Weight Body Mass Index (BMI) 34.9 BMI Classification Obese Vital Signs Temperature (97.8 F-99.1 F) 97.2 F L Temperature Source Temporal Pulse Rate (60-100) 71 Pulse Location Monitor Respiratory Rate (12-18) 16 Respiratory rate source Observation Oxygen Delivery Method Room Air Blood Pressure (90/60-120/80) 152/68 H Blood Pressure Mean (mm Hg) 96 Source Monitor Position Sitting Blood Pressure Location Right Arm History Since Last Visit- (Skip if this is Patient's initial visit) Have you changed medications since your No last visit? Any new allergies or adverse reactions No Had a fall/change in ADL's that may No increase risk of falls Signs or symptoms of abuse and/or No neglect since last visit Have you been in the hospital since your No last visit? Has dressing in place as prescribed Yes Has compression in place as prescribed N/A Has offloadiing in place as prescribed N/A Experienced any changes in pain level or No management Left Footwear Regular Shoe Right Footwear Regular Shoe Pain Scale: 0-10 Numeric Is Patient Pain Free? Yes DIGNA Eli Nurse 1 - General Ulcer Measurement Start: 03/20/22 12:58 Freq: Status: Active Protocol: Activity Type Activity Date Activity User E-sign Co-sign Detail Recorded Client Recorded Date Recorded By Document 03/20/22 12:58 [facility] [id number] 03/20/22 13:05 [facility] 03/20/22 12:58 Wound Center Nurse 1 #3 L distal thigh -Combined with other wound No -Current Size (cm) - Length 0.6 -Current Size (cm) - Width 0.1 -Current Size (cm) - Depth 0.2 -Total Square Cm 0.06 -Date of Last Picture (Recall this 03/20/22 field) -Photo Taken Yes -Epithelialization Large 67-100% -Tunneling No -Undermining/Tunneling No -Circular Undermining No -Exudate Amt Small -Exudate Type Serous -Wound Margin Distinct, Outline Attached -Granulation Amt Medium (34-66%) -Granulation Quality Red -Slough/Fibrin Yes -Necrosis Amt Small (1-33%) -Necrotic Tissue Type Adherent Slough -Texture (Emilie-wound Skin Appearance) Assessed, Scarring -Moisture (Emilie-wound Skin Appearance) Assessed,Dry/ Scaly -Color (Emilie-wound Skin Appearance) Assessed -Temperature (Emilie-wound Skin No Abnormality Appearance) (Pt Warm) -Tenderness on Palpation (Emilie-wound No Skin Appearance) -Ulcer Cleansing Rinsed/ Irrigated with Saline -Foul Odor after Cleansing No -Anesthetic Used 4% Lidocaine Solution #2 L middle thigh/hip -Combined with other wound No -Current Size (cm) - Length 0.1 -Current Size (cm) - Width 0.1 -Current Size (cm) - Depth 0.1 -Total Square Cm 0.01 -Date of Last Picture (Recall this 03/20/22 field) -Photo Taken Yes -Epithelialization Large 67-100% -Texture (Emilie-wound Skin Appearance) Assessed, Scarring -Moisture (Emilie-wound Skin Appearance) Assessed,Dry/ Scaly -Color (Emilie-wound Skin Appearance) Assessed -Temperature (Emilie-wound Skin No Abnormality Appearance) (Pt Warm) -Tenderness on Palpation (Emilie-wound No Skin Appearance) -Ulcer Cleansing Rinsed/ Irrigated with Saline -Foul Odor after Cleansing No -Anesthetic Used 4% Lidocaine Solution #1 superior thigh/hip -Combined with other wound No -Current Size (cm) - Length 0.6 -Current Size (cm) - Width 0.3 -Current Size (cm) - Depth 1.3 -Total Square Cm 0.18 -Date of Last Picture (Recall this 03/20/22 field) -Photo Taken Yes -Epithelialization Small 1-33% -Tunneling No -Undermining/Tunneling No -Circular Undermining No -Exudate Amt Small -Exudate Type Serosanguineous -Wound Margin Distinct, Outline Attached -Granulation Amt Large (67-100%) -Granulation Quality Red -Slough/Fibrin No -Necrosis Amt None Present (0 %) -Texture (Emilie-wound Skin Appearance) Assessed, Scarring -Moisture (Emilie-wound Skin Appearance) Assessed,Dry/ Scaly -Color (Emilie-wound Skin Appearance) Assessed -Temperature (Emilie-wound Skin No Abnormality Appearance) (Pt Warm) -Tenderness on Palpation (Emilie-wound No Skin Appearance) -Ulcer Cleansing Rinsed/ Irrigated with Saline -Foul Odor after Cleansing No -Anesthetic Used 4% Lidocaine Solution WC - Nurse 2 - General Ulcer CM Notes Start: 03/20/22 12:58 Freq: Status: Active Protocol: Activity Type Activity Date Activity User E-sign Co-sign Detail Recorded Client Recorded Date Recorded By Document 03/20/22 13:24 [facility] [id number] 03/20/22 13:29 [facility] 03/20/22 13:24 Wound Center Nurse 2 #3 L distal thigh -Time 13:24 -Correct Patient Yes -Correct Side, Site, Position Yes -Correct Procedure Yes -Procedure Performed Yes -Type of Procedure Debridement -Clinical Debridement Subcutaneous -Tissue Removed Subcutaneous -Post Debridement (cm) - Length 0.7 -Post Debridement (cm) - Width 0.2 -Post Debridement (cm) - Depth 0.1 -Total Square (Post) (cm) 0.14 -Area of Debridement (cm) - Length 0.7 -Area of Debridement (cm) - Width 0.2 -Total Square (Area) (cm) 0.14 -Tunneling No -Undermining/Tunneling No -Circular Undermining No -Wound/Ulcer Outcome Not Healed -Ulcer Cleansing Rinsed/ Irrigated with Saline -Foul Odor after Cleansing No -Bioengineered Tissue No -Bleeding Controlled with Pressure -Treatment Response Procedure Tolerated Well -Offloading No -Debridement - Subq, 1st 20sq cm Yes #2 L middle thigh/hip -Time 13:24 -Correct Patient Yes -Correct Side, Site, Position Yes -Correct Procedure Yes -Procedure Performed Yes -Type of Procedure Debridement -Clinical Debridement Subcutaneous -Tissue Removed Subcutaneous -Post Debridement (cm) - Length 2.0 -Post Debridement (cm) - Width 0.2 -Post Debridement (cm) - Depth 0.1 -Total Square (Post) (cm) 0.40 -Area of Debridement (cm) - Length 2.0 -Area of Debridement (cm) - Width 0.2 -Total Square (Area) (cm) 0.40 -Tunneling No -Undermining/Tunneling No -Circular Undermining No -Wound/Ulcer Outcome Not Healed -Bioengineered Tissue No -Bleeding Controlled with Pressure -Treatment Response Procedure Tolerated Well -Offloading No -Debridement - Subq, 1st 20sq cm No #1 superior thigh/hip -Time 13:25 -Correct Patient Yes -Correct Side, Site, Position Yes -Correct Procedure Yes -Procedure Performed Yes -Type of Procedure Debridement -Clinical Debridement Subcutaneous -Tissue Removed Subcutaneous -Post Debridement (cm) - Length 0.7 -Post Debridement (cm) - Width 0.4 -Post Debridement (cm) - Depth 1.5 -Total Square (Post) (cm) 0.28 -Area of Debridement (cm) - Length 0.7 -Area of Debridement (cm) - Width 0.4 -Total Square (Area) (cm) 0.28 -Tunneling No -Undermining/Tunneling No -Circular Undermining No -Wound/Ulcer Outcome Not Healed -Ulcer Cleansing Rinsed/ Irrigated with Saline -Foul Odor after Cleansing No -Bioengineered Tissue No -Bleeding Controlled with Pressure -Treatment Response Procedure Tolerated Well -Offloading No -Debridement - Subq, 1st 20sq cm No Pain Scale: 0-10 Numeric Is Patient Pain Free? Yes Additional Wound Wound debrided: medial hip wound Laterality: Left Type of Debridement: Excisional debridement Anesthesia Used: 5% Lidocaine Gel Depth: Down to and including healthy tissue and in the subcutaneous layer Percentage of wound debrided: 100 Instrument Used: 3mm curette Tissue Removed: Non viable tissue and slough Severity: Fat Layer Exposed Amount of bleeding with debridement: Mild Bleeding Controlled with: Pressure and Compression and gauze Patient tolerated procedure: Patient tolerated procedure well Additional Wound Wound debrided: distal hip incisional wound Laterality: Left Type of Debridement: Excisional debridement Anesthesia Used: 5% Lidocaine Gel Depth: Down to and including healthy tissue and in the subcutaneous layer Percentage of wound debrided: 100 Instrument Used: 3mm curette Tissue Removed: Non viable tissue and slough Severity: Fat Layer Exposed Amount of bleeding with debridement: Mild Bleeding Controlled with: Pressure and Compression and gauze Patient tolerated procedure: Patient tolerated procedure well Assessment/Plan Assessment/Plan (1) Non-healing surgical wound: CODE(S): T81.89XA - Other complications of procedures, not elsewhere cla ssified, initial encounter (2) History of left hip replacement: CODE(S): Z96.642 - Presence of left artificial hip joint (3) Current use of anticoagulant therapy: CODE(S): Z79.01 - longterm (current) use of anticoagulants (4) Edema of both lower extremities: CODE(S): R60.0 - Localized edema PLAN: Plan Patient was evaluated at the wound center today.? A subcutaneous debridement was performed as documented. Patient has a left anterior? hip incision with three areas of separation. A wound culture was obtained on 02/11/22 which was positive for Serratia fonticola, Pseudomonas aeroginosa and Anaerobic cocci.? She completed Levaquin and flagyl. Wound care - Wick Aquacel-Ag into the tunnel of the proximal wound.? Place place collagen hydrogel and into the base of the other two wounds, place gauze over the wounds. Dressing changes should be performed daily after washing the area with soap and water. She is wearing bilateral lower leg compression stockings for compression. Encouraged increase protein intake and increasing Vitamin C intake. Patient has had vaginal bleeding since her hip replacement and they were told her ultrasound was abnormal and it may be cancer, they are waiting for biopsy results.? She had an appointment with Dr. Singh a few weeks ago and he said to continue the wound care. Follow up 2 weeks, due to her having transportation issues.
[2022-04-10 13:20] VITALS: BP 148/79; PULSE 68; TEMP 36.4; BMI 34.9
--- NOTE | 2022-04-10 14:10 | PN.PCM_ITS ---
History of Present Illness Date of Service: 04/10/22 Chief Complaint: Non healing left anterior hip incision after hip replacement History of Wound: Patient is a 77 year old female who had a hip replacement on 01/14/[address] Singh. She states that she has no pain and is walking well with a walker. Her left anterior hip incision last week. Two weeks postop the incision was intact but erythematous. The patient was initially were cleaning the incision with peroxide. They they were instructed to stop that at the two week follow up visit and instructed to keep the incision dry and covered. She has been taking Doxycycline since her surgery. Patient has history of osteoarthritis, Afib, cardiomyopathy, bilateral cataract, HTN. Her daughter states that the patient has had some vaginal bleeding since her surgery and she has had an ultrasound and their PCP, Dr. Heredia told them that he believes it is cancer and is being referring the patient to a specialist. Wound care - Aquacel-Ag to the superior hip ulcer cover with gauze. Patient denies fever, chills, nausea or vomiting. She states her appetite has been ok. Progress of Wound: Left hip superior ulcer is smaller and the tunnel has less depth. The left hip middle and distal ulcers are healed. Objective Data Objective Data Vital Signs: Vital Signs Temp Pulse Resp BP O2 Del Method 97.6 F L 68 16 148/79 H Room Air 04/10/22 13:20 04/10/22 13:20 03/20/22 12:58 04/10/22 13:20 03/20/22 12:58 Oxygen Delivery Method Room Air Weight: 230 lb Body Mass Index (BMI) 34.9 Charges/Coding Procedures Integumentary 111xxx-113xx: 09692 Billie subq tissue 20 sq cm/< Physical Exam Const alert General Appearance: cooperative and well kempt Resp normal respiratory effort Effort and Inspection: able to speak in complete sentences Cardio regular rate Extremity Extremity Narrative: Bilateral lower leg edema. Skin Wound Narrative: Left anterior hip superior ulcer is smaller and the tunnel has less depth. The left hip middle and distal ulcers are healed. Neuro moves all extremities Sensorium / Orientation: awake and alert Psych mental status grossly normal Debridement Note Debridement Note Wound debrided: superior hip wound Laterality: Left Type of Debridement: Excisional debridement Anesthesia Used: 5% Lidocaine Gel Depth: Down to and including healthy tissue and in the subcutaneous layer Percentage of wound debrided: 100 Instrument Used: 3mm curette Tissue Removed: Non viable tissue and slough Severity: Fat Layer Exposed Amount of bleeding with debridement: Mild Bleeding Controlled with: Pressure and Compression and gauze Patient tolerated procedure: Patient tolerated procedure well Post-Debridement Measurements and Additional Note: Post-Debridement Measurements/Treatment WC - Nurse 1 - General Ulcer Assessment Start: 03/20/22 12:58 Freq: Status: Active Protocol: TATE Activity Type Activity Date Activity User E-sign Co-sign Detail Recorded Client Recorded Date Recorded By Document 03/20/22 12:58 [facility] [id number] 03/20/22 13:05 BM Document 04/10/22 13:20 KR [id number] 04/10/22 13:21 KR 03/20/22 04/10/22 12:58 13:20 WC - Today's Visit Information Type of service Follow-up Visit Follow-up Visit (Physician/SWITCHBOARD OPERATOR RECEPTIONIST (Physician/SWITCHBOARD OPERATOR RECEPTIONIST ) ) Arrival Mode Ambulatory, Ambulatory Walker Transfer Assistance None Accompanied by DAUGHTER Patient Identification Verified (Name & Yes Yes ) Patient Requires Transmission-Based No Precautions Height and Weight Body Mass Index (BMI) 34.9 34.9 BMI Classification Obese Obese Vital Signs Temperature (97.8 F-99.1 F) 97.2 F L 97.6 F L Temperature Source Temporal Temporal Pulse Rate (60-100) 71 68 Pulse Location Monitor Monitor Respiratory Rate (12-18) 16 Respiratory rate source Observation Oxygen Delivery Method Room Air Blood Pressure (90/60-120/80) 152/68 H 148/79 H Blood Pressure Mean (mm Hg) 96 102 Source Monitor Monitor Position Sitting Sitting Blood Pressure Location Right Arm Right Arm History Since Last Visit- (Skip if this is Patient's initial visit) Have you changed medications since your No No last visit? Any new allergies or adverse reactions No No Had a fall/change in ADL's that may No No increase risk of falls Signs or symptoms of abuse and/or No No neglect since last visit Have you been in the hospital since your No No last visit? Has dressing in place as prescribed Yes Yes Has compression in place as prescribed N/A N/A Has offloadiing in place as prescribed N/A N/A Experienced any changes in pain level or No No management Left Footwear Regular Shoe Regular Shoe Right Footwear Regular Shoe Regular Shoe Pain Scale: 0-10 Numeric Is Patient Pain Free? Yes Yes WC - Nurse 1 - General Ulcer Measurement Start: 03/20/22 12:58 Freq: Status: Active Protocol: Activity Type Activity Date Activity User E-sign Co-sign Detail Recorded Client Recorded Date Recorded By Document 03/20/22 12:58 [facility] [id number] 03/20/22 13:05 BMF Document 04/10/22 13:20 KR [id number] 04/10/22 13:21 KR 03/20/22 04/10/22 12:58 13:20 Wound Center Nurse 1 #3 L distal thigh -Combined with other wound No -Current Size (cm) - Length 0.6 0.5 -Current Size (cm) - Width 0.1 0.2 -Current Size (cm) - Depth 0.2 0.9 -Total Square Cm 0.06 0.10 -Date of Last Picture (Recall this 03/20/22 field) -Photo Taken Yes -Epithelialization Large 67-100% -Tunneling No -Undermining/Tunneling No -Circular Undermining No -Exudate Amt Small Small -Exudate Type Serous Serosanguineous -Wound Margin Distinct, Distinct, Outline Outline Attached Attached -Granulation Amt Medium (34-66%) Large (67-100%) -Granulation Quality Red [place] -Slough/Fibrin Yes -Necrosis Amt Small (1-33%) None Present (0 %) -Necrotic Tissue Type Adherent Slough -Texture (Emilie-wound Skin Appearance) Assessed, Assessed, Scarring Scarring -Moisture (Emilie-wound Skin Appearance) Assessed,Dry/ No Abnormality, Scaly Assessed -Color (Emilie-wound Skin Appearance) Assessed No Abnormality, Assessed -Temperature (Emilie-wound Skin No Abnormality No Abnormality Appearance) (Pt Warm) (Pt Warm) -Tenderness on Palpation (Emilie-wound No No Skin Appearance) -Ulcer Cleansing Rinsed/ Rinsed/ Irrigated with Irrigated with Saline Saline -Foul Odor after Cleansing No No -Anesthetic Used 4% Lidocaine 5% Lidocaine Solution Gel #2 L middle thigh/hip -Combined with other wound No -Current Size (cm) - Length 0.1 0.1 -Current Size (cm) - Width 0.1 0.1 -Current Size (cm) - Depth 0.1 0.1 -Total Square Cm 0.01 0.01 -Date of Last Picture (Recall this 03/20/22 field) -Photo Taken Yes -Epithelialization Large 67-100% -Texture (Emilie-wound Skin Appearance) Assessed, Scarring -Moisture (Emilie-wound Skin Appearance) Assessed,Dry/ Scaly -Color (Emilie-wound Skin Appearance) Assessed -Temperature (Emilie-wound Skin No Abnormality Appearance) (Pt Warm) -Tenderness on Palpation (Emilie-wound No Skin Appearance) -Ulcer Cleansing Rinsed/ Irrigated with Saline -Foul Odor after Cleansing No -Anesthetic Used 4% Lidocaine Solution #1 superior thigh/hip -Combined with other wound No -Current Size (cm) - Length 0.6 0.1 -Current Size (cm) - Width 0.3 0.1 -Current Size (cm) - Depth 1.3 0.1 -Total Square Cm 0.18 0.01 -Date of Last Picture (Recall this 03/20/22 field) -Photo Taken Yes -Epithelialization Small 1-33% -Tunneling No -Undermining/Tunneling No -Circular Undermining No -Exudate Amt Small -Exudate Type Serosanguineous -Wound Margin Distinct, Outline Attached -Granulation Amt Large (67-100%) -Granulation Quality Red -Slough/Fibrin No -Necrosis Amt None Present (0 %) -Texture (Emilie-wound Skin Appearance) Assessed, Scarring -Moisture (Emilie-wound Skin Appearance) Assessed,Dry/ Scaly -Color (Emilie-wound Skin Appearance) Assessed -Temperature (Emilie-wound Skin No Abnormality Appearance) (Pt Warm) -Tenderness on Palpation (Emilie-wound No Skin Appearance) -Ulcer Cleansing Rinsed/ Irrigated with Saline -Foul Odor after Cleansing No -Anesthetic Used 4% Lidocaine Solution WC - Nurse 2 - General Ulcer CM Notes Start: 03/20/22 12:58 Freq: Status: Active Protocol: Activity Type Activity Date Activity User E-sign Co-sign Detail Recorded Client Recorded Date Recorded By Document 03/20/22 13:24 MW [id number] 03/20/22 13:29 MW Document 04/10/22 13:30 MW [id number] 04/10/22 13:33 MW 03/20/22 04/10/22 13:24 13:30 Wound Center Nurse 2 #3 L distal thigh -Time 13: 13:31 -Correct Patient Yes Yes -Correct Side, Site, Position Yes Yes -Correct Procedure Yes Yes -Procedure Performed Yes No -Type of Procedure Debridement -Clinical Debridement Subcutaneous -Tissue Removed Subcutaneous -Post Debridement (cm) - Length 0.7 0 -Post Debridement (cm) - Width 0.2 0 -Post Debridement (cm) - Depth 0.1 -Total Square (Post) (cm) 0.14 0 -Area of Debridement (cm) - Length 0.7 -Area of Debridement (cm) - Width 0.2 -Total Square (Area) (cm) 0.14 -Tunneling No -Undermining/Tunneling No -Circular Undermining No -Wound/Ulcer Outcome Not Healed Healed- Epithelialized -Ulcer Cleansing Rinsed/ Irrigated with Saline -Foul Odor after Cleansing No -Bioengineered Tissue No -Bleeding Controlled with Pressure -Treatment Response Procedure Tolerated Well -Offloading No -Debridement - Subq, 1st 20sq cm Yes #2 L middle thigh/hip -Time 13: 13:32 -Correct Patient Yes Yes -Correct Side, Site, Position Yes Yes -Correct Procedure Yes Yes -Procedure Performed Yes No -Type of Procedure Debridement -Clinical Debridement Subcutaneous -Tissue Removed Subcutaneous -Post Debridement (cm) - Length 2.0 0 -Post Debridement (cm) - Width 0.2 0 -Post Debridement (cm) - Depth 0.1 -Total Square (Post) (cm) 0.40 0 -Area of Debridement (cm) - Length 2.0 -Area of Debridement (cm) - Width 0.2 -Total Square (Area) (cm) 0.40 -Tunneling No -Undermining/Tunneling No -Circular Undermining No -Wound/Ulcer Outcome Not Healed Healed- Epithelialized -Bioengineered Tissue No -Bleeding Controlled with Pressure -Treatment Response Procedure Tolerated Well -Offloading No -Debridement - Subq, 1st 20sq cm No #1 superior thigh/hip -Time 13:25 13:32 -Correct Patient Yes Yes -Correct Side, Site, Position Yes Yes -Correct Procedure Yes Yes -Procedure Performed Yes Yes -Type of Procedure Debridement Debridement -Clinical Debridement Subcutaneous Subcutaneous -Tissue Removed Subcutaneous Subcutaneous -Post Debridement (cm) - Length 0.7 0.6 -Post Debridement (cm) - Width 0.4 0.5 -Post Debridement (cm) - Depth 1.5 1.0 -Total Square (Post) (cm) 0.28 0.30 -Area of Debridement (cm) - Length 0.7 0.6 -Area of Debridement (cm) - Width 0.4 0.5 -Total Square (Area) (cm) 0.28 0.30 -Tunneling No No -Undermining/Tunneling No No -Circular Undermining No No -Wound/Ulcer Outcome Not Healed Not Healed -Ulcer Cleansing Rinsed/ Rinsed/ Irrigated with Irrigated with Saline Saline -Foul Odor after Cleansing No No -Bioengineered Tissue No No -Bleeding Controlled with Pressure Pressure -Treatment Response Procedure Procedure Tolerated Well Tolerated Well -Offloading No No -Debridement - Subq, 1st 20sq cm No Yes Pain Scale: 0-10 Numeric Is Patient Pain Free? Yes Yes Assessment/Plan Assessment/Plan (1) Non-healing surgical wound: CODE(S): T81.89XA - Other complications of procedures, not elsewhere classified, initial encounter (2) History of left hip replacement: CODE(S): Z96.642 - Presence of left artificial hip joint (3) Current use of anticoagulant therapy: CODE(S): Z79.01 - senior living (current) use of anticoagulants (4) Edema of both lower extremities: CODE(S): R60.0 - Localized edema PLAN: Plan Patient was evaluated at the wound center today.? A subcutaneous debridement was performed as documented. A wound culture was obtained on 02/11/22 which was positive for Serratia fonticola, Pseudomonas aeroginosa and Anaerobic cocci.? She completed Levaquin and flagyl. Wound care - Wick Aquacel-Ag into the tunnel of the superior wound and cover with gauze daily. The middle an distal ulcers are healed. She is wearing bilateral lower leg compression stockings for compression. Encouraged increase protein intake and increasing Vitamin C intake. Patient has had vaginal bleeding since her hip replacement and they were told her ultrasound was abnormal, biopsy was normal. She had an appointment with Dr. Singh a few weeks ago and he said to continue the wound care. Follow up 3 weeks, due to her having transportation issues.
== END 2022-04-11 23:59 | disposition home or self-care (01) ==
LOC: WC 13:15
PROVIDERS: PCP Family Medicine; Referring Provider Physician Assistant Surgical; Visit Provider Nurse Practitioner Family
DX: T81.89XA Other complications of procedures, not elsewhere classified, initial encounter (principal); L98.492 Non-pressure chronic ulcer of skin of other sites with fat layer exposed; I48.91 Unspecified atrial fibrillation; Z79.01 Long term (current) use of anticoagulants; I10 Essential (primary) hypertension; R60.0 Localized edema; Z96.642 Presence of left artificial hip joint; M19.90 Unspecified osteoarthritis, unspecified site
CPT/HCPCS: 11042

== ENCOUNTER 2022-05-12 13:15 | Outpatient (RCR) | payer OTHER, SELFPAY ==
[2022-04-12 00:37] VITALS: BP 148/79; PULSE 68; RESP 16; TEMP 36.4; BMI 34.9
--- NOTE | 2022-04-28 13:00 | PN.PCM_ITS ---
History of Present Illness Date of Service: 04/28/22 Chief Complaint: Non healing left anterior hip incision after hip replacement History of Wound: Patient is a 77 year old female who had a hip replacement on 01/14/[address] Singh. She states that she has no pain and is walking well with a walker. Her left anterior hip incision last week. Two weeks postop the incision was intact but erythematous. The patient was initially were cleaning the incision with peroxide. They they were instructed to stop that at the two week follow up visit and instructed to keep the incision dry and covered. She has been taking Doxycycline since her surgery. Patient has history of osteoarthritis, Afib, cardiomyopathy, bilateral cataract, HTN. Her daughter states that the patient has had some vaginal bleeding since her surgery and she has had an ultrasound and their PCP, Dr. Heredia told them that he believes it is cancer and is being referring the patient to a specialist. Wound care - Iodoform 1/4 gauze to the superior hip ulcer cover with gauze. Patient denies fever, chills, nausea or vomiting. She states her appetite has been ok. Progress of Wound: Left superior hip ulcer is smaller in size and depth. Objective Data Objective Data Vital Signs: Vital Signs Temp Pulse Resp BP 97.4 F L 73 20 H 193/93 H 04/28/22 13:02 04/28/22 13:02 04/28/22 13:02 04/28/22 13:02 Weight: 230 lb Body Mass Index (BMI) 34.9 Charges/Coding Procedures Integumentary 111xxx-113xx: 59346 Billie subq tissue 20 sq cm/< Debridement Note Debridement Note Wound debrided: superior hip wound Laterality: Left Type of Debridement: Excisional debridement Anesthesia Used: 5% Lidocaine Gel Depth: Down to and including healthy tissue and in the subcutaneous layer Percentage of wound debrided: 100 Instrument Used: 3mm curette Tissue Removed: Non viable tissue and slough Severity: Fat Layer Exposed Amount of bleeding with debridement: Mild Bleeding Controlled with: Pressure and Compression and gauze Patient tolerated procedure: Patient tolerated procedure well Post-Debridement Measurements and Additional Note: Post-Debridement Measurements/Treatment DIGNA - Nurse 1 - General Ulcer Assessment Start: 04/28/22 13:02 Freq: Status: Active Protocol: TATE Activity Type Activity Date Activity User E-sign Co-sign Detail Recorded Client Recorded Date Recorded By Document 04/28/22 13:02 DL [id number] 04/28/22 13:07 DL 04/28/22 13:02 WC - Today's Visit Information Type of service Follow-up Visit (Physician/SENIOR WEALTH ADVISOR ) Arrival Mode Ambulatory, Walker Transfer Assistance None Patient Identification Verified (Name & Yes ) Patient Requires Transmission-Based No Precautions Height and Weight Body Mass Index (BMI) 34.9 BMI Classification Obese Vital Signs Temperature (97.8 F-99.1 F) 97.4 F L Temperature Source Temporal Pulse Rate (60-100) 73 Pulse Location Monitor Respiratory Rate (12-18) 20 H Respiratory rate source Observation Blood Pressure (90/60-120/80) 193/93 H Blood Pressure Mean (mm Hg) 126 Source Monitor History Since Last Visit- (Skip if this is Patient's initial visit) Have you changed medications since your No last visit? Any new allergies or adverse reactions No Had a fall/change in ADL's that may No increase risk of falls Signs or symptoms of abuse and/or No neglect since last visit Have you been in the hospital since your No last visit? Has dressing in place as prescribed Yes Has compression in place as prescribed N/A Has offloadiing in place as prescribed N/A Experienced any changes in pain level or No management Pain Scale: 0-10 Numeric Is Patient Pain Free? Yes - Nurse 1 - General Ulcer Measurement Start: 04/28/22 13:02 Freq: Status: Active Protocol: Activity Type Activity Date Activity User E-sign Co-sign Detail Recorded Client Recorded Date Recorded By Document 04/28/22 13:02 [id number] 04/28/22 13:07 04/28/22 13:02 Wound Center Nurse 1 #1 superior thigh/hip -Current Size (cm) - Length 0.4 -Current Size (cm) - Width 0.2 -Current Size (cm) - Depth 0.5 -Total Square Cm 0.08 -Photo Taken Yes -Tunneling Position (O'clock) 11 -Tunneling Distance (cm) 0.5 -Exudate Amt Small -Exudate Type Serosanguineous -Wound Margin Distinct, Outline Attached -Granulation Quality Hyper- granulation, [place] -Necrosis Amt Small (1-33%) -Necrotic Tissue Type Adherent Slough -Structure Exposed N/A -Texture (Emilie-wound Skin Appearance) Scarring -Moisture (Emilie-wound Skin Appearance) No Abnormality -Color (Emilie-wound Skin Appearance) No Abnormality -Temperature (Emilie-wound Skin No Abnormality Appearance) (Pt Warm) -Tenderness on Palpation (Emilie-wound No Skin Appearance) -Ulcer Cleansing Rinsed/ Irrigated with Saline -Foul Odor after Cleansing No -Anesthetic Used 4% Lidocaine Solution WC - Nurse 2 - General Ulcer CM Notes Start: 04/28/22 13:02 Freq: Status: Active Protocol: Activity Type Activity Date Activity User E-sign Co-sign Detail Recorded Client Recorded Date Recorded By Document 04/28/22 13:20 KAITLIN [id number] 04/28/22 13:21 JF 04/28/22 13:20 Wound Center Nurse 2 -Time 13:21 -Correct Patient Yes -Correct Side, Site, Position Yes -Correct Procedure Yes -Procedure Performed Yes -Type of Procedure Debridement -Clinical Debridement Subcutaneous -Tissue Removed Subcutaneous -Post Debridement (cm) - Length 0.3 -Post Debridement (cm) - Width 0.5 -Post Debridement (cm) - Depth 0.6 -Total Square (Post) (cm) 0.15 -Area of Debridement (cm) - Length 0.3 -Area of Debridement (cm) - Width 0.5 -Total Square (Area) (cm) 0.15 -Tunneling No -Circular Undermining No -Wound/Ulcer Outcome Not Healed -Ulcer Cleansing Rinsed/ Irrigated with Saline -Foul Odor after Cleansing No -Bioengineered Tissue No -Bleeding Controlled with Pressure -Treatment Response Procedure Not Tolerated Well -Offloading No -Debridement - Subq, 1st 20sq cm Yes Pain Scale: 0-10 Numeric Is Patient Pain Free? Yes - Nurse 3 - General Ulcer D/C NN Start: 04/28/22 13:02 Freq: Status: Active Protocol: Activity Type Activity Date Activity User E-sign Co-sign Detail Recorded Client Recorded Date Recorded By Document 04/28/22 13:28 OLGA LIDIA [id number] 04/28/22 13:29 AK 04/28/22 13:28 Wound Care Nurse 3 #1 superior thigh/hip -Ulcer Cleansing Rinsed/ Irrigated with Saline -Foul Odor after Cleansing No -Negative Pressure Wound Therapy N/A -Primary Dressing Applied Nugauze, Iodoform -Primary Dressing Covered/Secured with Dry Gauze, Secured with Tape -Nugauze, Iodoform 1/4 1 Pain Scale: 0-10 Numeric Is Patient Pain Free? Yes WC - Visit Discharge Discharge Condition Stable Ambulatory Status Ambulatory Transportation Private Auto Medication Reconcilliation completed & Yes provided to patient/care provider Clinical Summary of Care Provided Yes Assessment/Plan Assessment/Plan (1) Non-healing surgical wound: CODE(S): T81.89XA - Other complications of procedures, not elsewhere classified, initial encounter (2) History of left hip replacement: CODE(S): Z96.642 - Presence of left artificial hip joint (3) Current use of anticoagulant therapy: CODE(S): Z79.01 - skilled nursing (current) use of anticoagulants (4) Edema of both lower extremities: CODE(S): R60.0 - Localized edema PLAN: Plan Patient was evaluated at the wound center today.? A subcutaneous debridement was performed as documented. A wound culture was obtained on 02/11/22 which was positive for Serratia fonticola, Pseudomonas aeroginosa and Anaerobic cocci.? She completed Levaquin and flagyl. Wound care - Wick Iodoform 1/4 gauze into the tunnel of the superior wound and cover with gauze daily. The middle an distal ulcers are healed. She is wearing bilateral lower leg compression stockings for compression. Encouraged increase protein intake and increasing Vitamin C intake. Patient has had vaginal bleeding since her hip replacement and they were told her ultrasound was abnormal, biopsy was normal. She had an appointment with Dr. Singh a few weeks ago and he said to continue the wound care. Follow up 2 weeks, due to her having transportation issues.
[2022-04-28 13:02] VITALS: BP 193/93; PULSE 73; RESP 20; TEMP 36.3; BMI 34.9
[2022-05-12 13:21] VITALS: BP 157/80; PULSE 63; RESP 20; TEMP 36.1; BMI 34.9
--- NOTE | 2022-05-12 15:03 | PN.PCM_ITS ---
History of Present Illness Date of Service: 05/12/22 Chief Complaint: Non healing left anterior hip incision after hip replacement History of Wound: Patient is a 77 year old female who had a hip replacement on 01/14/[address] Singh. She states that she has no pain and is walking well with a walker. Her left anterior hip incision last week. Two weeks postop the incision was intact but erythematous. The patient was initially were cleaning the incision with peroxide. They they were instructed to stop that at the two week follow up visit and instructed to keep the incision dry and covered. She has been taking Doxycycline since her surgery. Patient has history of osteoarthritis, Afib, cardiomyopathy, bilateral cataract, HTN. Her daughter states that the patient has had some vaginal bleeding since her surgery and she has had an ultrasound and their PCP, Dr. Heredia told them that he believes it is cancer and is being referring the patient to a specialist. Wound care - Collagen hydrogel covered with adaptic and topped with gauze to the superior hip ulcer cover with gauze. Patient denies fever, chills, nausea or vomiting. She states her appetite has been ok. Progress of Wound: Left superior hip ulcer is smaller in size and depth. Objective Data Objective Data Vital Signs: Vital Signs Temp Pulse Resp BP 97 F L 63 20 H 157/80 H 05/12/22 13:21 05/12/22 13:21 05/12/22 13:21 05/12/22 13:21 Weight: 230 lb Body Mass Index (BMI) 34.9 Charges/Coding Procedures Integumentary 111xxx-113xx: [id number] Billie subq tissue 20 sq cm/< Debridement Note Debridement Note Wound debrided: superior hip wound Laterality: Left Type of Debridement: Excisional debridement Anesthesia Used: 5% Lidocaine Gel Depth: Down to and including healthy tissue and in the subcutaneous layer Percentage of wound debrided: 100 Instrument Used: 3mm curette Tissue Removed: Non viable tissue and slough Severity: Fat Layer Exposed Amount of bleeding with debridement: Mild Bleeding Controlled with: Pressure and Compression and gauze Patient tolerated procedure: Patient tolerated procedure well Post-Debridement Measurements and Additional Note: Post-Debridement Measurements/Treatment DIGNA - Nurse 1 - General Ulcer Assessment Start: 04/28/22 13:02 Freq: Status: Active Protocol: TATE Activity Type Activity Date Activity User E-sign Co-sign Detail Recorded Client Recorded Date Recorded By Document 04/28/22 13:02 DL [id number] 04/28/22 13:07 DL Document 05/12/22 13:21 DL [id number] 05/12/22 13:26 DL 04/28/22 05/12/22 13:02 13:21 WC - Today's Visit Information Type of service Follow-up Visit Follow-up Visit (Physician/WET PROCESS HEAD MILLER (Physician/WET PROCESS HEAD MILLER ) ) Arrival Mode Ambulatory, Ambulatory, Walker Walker Transfer Assistance None None Patient Identification Verified (Name & Yes Yes ) Patient Requires Transmission-Based No No Precautions Height and Weight Body Mass Index (BMI) 34.9 34.9 BMI Classification Obese Obese Vital Signs Temperature (97.8 F-99.1 F) 97.4 F L 97 F L Temperature Source Temporal Temporal Pulse Rate (60-100) 73 63 Pulse Location Monitor Monitor Respiratory Rate (12-18) 20 H 20 H Respiratory rate source Observation Observation Blood Pressure (90/60-120/80) 193/93 H 157/80 H Blood Pressure Mean (mm Hg) 126 105 Source Monitor Monitor History Since Last Visit- (Skip if this is Patient's initial visit) Have you changed medications since your No No last visit? Any new allergies or adverse reactions No No Had a fall/change in ADL's that may No No increase risk of falls Signs or symptoms of abuse and/or No No neglect since last visit Have you been in the hospital since your No No last visit? Has dressing in place as prescribed Yes Yes Has compression in place as prescribed N/A N/A Has offloadiing in place as prescribed N/A Yes Experienced any changes in pain level or No No management Pain Scale: 0-10 Numeric Is Patient Pain Free? Yes Yes WC - Nurse 1 - General Ulcer Measurement Start: 04/28/22 13:02 Freq: Status: Active Protocol: Activity Type Activity Date Activity User E-sign Co-sign Detail Recorded Client Recorded Date Recorded By Document 04/28/22 13:02 DL [id number] 04/28/22 13:07 DL Document 05/12/22 13:21 DL [id number] 05/12/22 13:26 DL 04/28/22 05/12/22 13:02 13:21 Wound Center Nurse 1 #1 superior thigh/hip proximal -Combined with other wound No -Current Size (cm) - Length 0.4 0.3 -Current Size (cm) - Width 0.2 0.2 -Current Size (cm) - Depth 0.5 0.3 -Total Square Cm 0.08 0.06 -Photo Taken Yes No -Tunneling No -Tunneling Position (O'clock) 11 -Tunneling Distance (cm) 0.5 -Undermining/Tunneling No -Circular Undermining No -Change in Wound Grade/Stage No -Exudate Amt Small Medium -Exudate Type Serosanguineous Serosanguineous -Wound Margin Distinct, Distinct, Outline Outline Attached Attached -Granulation Amt None Present (0 %) -Granulation Quality Hyper- N/A granulation, [place] -Slough/Fibrin No -Necrosis Amt Small (1-33%) None Present (0 %) -Necrotic Tissue Type Adherent Slough -Structure Exposed N/A N/A -Texture (Emilie-wound Skin Appearance) Scarring Assessed, Scarring -Moisture (Emilie-wound Skin Appearance) No Abnormality No Abnormality, Assessed -Color (Emilie-wound Skin Appearance) No Abnormality No Abnormality, Assessed -Temperature (Emilie-wound Skin No Abnormality No Abnormality Appearance) (Pt Warm) (Pt Warm) -Tenderness on Palpation (Emilie-wound No No Skin Appearance) -Ulcer Cleansing Rinsed/ Rinsed/ Irrigated with Irrigated with Saline Saline -Foul Odor after Cleansing No No -Anesthetic Used 4% Lidocaine 5% Lidocaine Solution Gel WC - Nurse 2 - General Ulcer CM Notes Start: 04/28/22 13:02 Freq: Status: Active Protocol: Activity Type Activity Date Activity User E-sign Co-sign Detail Recorded Client Recorded Date Recorded By Document 04/28/22 13:20 [id number] 04/28/22 13:21 Document 05/12/22 13:50 [id number] 05/12/22 13:52 04/28/22 05/12/22 13:20 13:50 Wound Center Nurse 2 4-left hip distal -Time 13:51 -Correct Patient Yes -Correct Side, Site, Position Yes -Correct Procedure Yes -Procedure Performed Yes -Type of Procedure Debridement -Clinical Debridement Subcutaneous -Tissue Removed Subcutaneous -Post Debridement (cm) - Length 0.7 -Post Debridement (cm) - Width 0.5 -Post Debridement (cm) - Depth 0.1 -Total Square (Post) (cm) 0.35 -Area of Debridement (cm) - Length 0.7 -Area of Debridement (cm) - Width 0.5 -Total Square (Area) (cm) 0.35 -Tunneling No -Undermining/Tunneling No -Circular Undermining No -Wound/Ulcer Outcome Not Healed -Ulcer Cleansing Rinsed/ Irrigated with Saline -Foul Odor after Cleansing No -Bioengineered Tissue No -Bleeding Controlled with Pressure -Treatment Response Procedure Tolerated Well -Offloading No -Debridement - Subq, 1st 20sq cm No #1 superior thigh/hip proximal -Time 13:21 -Correct Patient Yes Yes -Correct Side, Site, Position Yes Yes -Correct Procedure Yes Yes -Procedure Performed Yes Yes -Type of Procedure Debridement Incision & Drainage -Clinical Debridement Subcutaneous Subcutaneous -Tissue Removed Subcutaneous Subcutaneous -Post Debridement (cm) - Length 0.3 0.5 -Post Debridement (cm) - Width 0.5 0.2 -Post Debridement (cm) - Depth 0.6 0.4 -Total Square (Post) (cm) 0.15 0.10 -Area of Debridement (cm) - Length 0.3 0.5 -Area of Debridement (cm) - Width 0.5 0.2 -Total Square (Area) (cm) 0.15 0.10 -Tunneling No No -Undermining/Tunneling No -Circular Undermining No No -Wound/Ulcer Outcome Not Healed Not Healed -Ulcer Cleansing Rinsed/ Rinsed/ Irrigated with Irrigated with Saline Saline -Foul Odor after Cleansing No No -Bioengineered Tissue No No -Bleeding Controlled with Pressure Pressure -Treatment Response Procedure Not Procedure Tolerated Well Tolerated Well -Offloading No No -Debridement - Subq, 1st 20sq cm Yes Yes Pain Scale: 0-10 Numeric Is Patient Pain Free? Yes Yes WC - Nurse 3 - General Ulcer D/C NN Start: 04/28/22 13:02 Freq: Status: Active Protocol: Activity Type Activity Date Activity User E-sign Co-sign Detail Recorded Client Recorded Date Recorded By Document 04/28/22 13:28 AK [id number] 04/28/22 13:29 AK Document 05/12/22 13:57 DL [id number] 05/12/22 13:58 DL 04/28/22 05/12/22 13:28 13:57 Wound Care Nurse 3 4-left hip distal -Ulcer Cleansing Rinsed/ Irrigated with Saline -Foul Odor after Cleansing No -Other Dressing hydrogel -Primary Dressing Covered/Secured with Dry Gauze, Secured with Tape #1 superior thigh/hip proximal -Ulcer Cleansing Rinsed/ Rinsed/ Irrigated with Irrigated with Saline Saline -Foul Odor after Cleansing No No -Negative Pressure Wound Therapy N/A -Primary Dressing Applied Nugauze, Iodoform -Other Dressing hydrogel -Primary Dressing Covered/Secured with Dry Gauze, Dry Gauze, Secured with Secured with Tape Tape -Nugauze, Iodoform 1/ 1 Treatment Response Procedure Tolerated Well Pain Scale: 0-10 Numeric Is Patient Pain Free? Yes Yes WC - Visit Discharge Discharge Condition Stable Stable Ambulatory Status Ambulatory Ambulatory, Walker Transportation Private Auto Private Auto Medication Reconcilliation completed & Yes provided to patient/care provider Clinical Summary of Care Provided Yes Assessment/Plan Assessment/Plan (1) Non-healing surgical wound: CODE(S): T81.89XA - Other complications of procedures, not elsewhere classified, initial encounter (2) History of left hip replacement: CODE(S): Z96.642 - Presence of left artificial hip joint (3) Current use of anticoagulant therapy: CODE(S): Z79.01 - [facility] (current) use of anticoagulants (4) Edema of both lower extremities: CODE(S): R60.0 - Localized edema PLAN: Plan Patient was evaluated at the wound center today.? A subcutaneous debridement was performed as documented. A wound culture was obtained on 02/11/22 which was positive for Serratia fonticola, Pseudomonas aeroginosa and Anaerobic cocci.? She completed Levaquin and flagyl. Wound care - Place collagen hydrogel covered with adaptic and topped with gauze to the superior wound daily. The middle an distal ulcers are healed. She is wearing bilateral lower leg compression stockings for compression. Encouraged increase protein intake and increasing Vitamin C intake. Patient has had vaginal bleeding since her hip replacement and they were told her ultrasound was abnormal, biopsy was normal. She had an appointment with Dr. Singh who said to continue the wound care. Follow up 2 weeks, due to her having transportation issues.
== END 2022-05-12 23:59 | disposition home or self-care (01) ==
LOC: WC 13:15
PROVIDERS: PCP Family Medicine; Referring Provider Physician Assistant Surgical; Visit Provider Nurse Practitioner Family
DX: T81.89XA Other complications of procedures, not elsewhere classified, initial encounter (principal); L97.822 Non-pressure chronic ulcer of other part of left lower leg with fat layer exposed; I48.91 Unspecified atrial fibrillation; I10 Essential (primary) hypertension; R60.0 Localized edema; M15.9 Polyosteoarthritis, unspecified; Z79.01 Long term (current) use of anticoagulants; Z96.642 Presence of left artificial hip joint
CPT/HCPCS: 11042; 87070; 87075; 87077; 87186; 87205

== ENCOUNTER → 2024-07-07 | Outpatient (CLI) | payer OTHER, SELFPAY ==
--- NOTE | 2024-07-07 13:50 | FLU_PTH ---
PATIENT: MIKHAIL DE LA FUENTE [facility]: [facility] U#:[id number] AGE/SX: 79/F ROOM: RE07/07/[address]: Dr. Kiran Mejía MD : 1945 BED: DIS: 07/07/2024 SPEC #: [id number] RECD: 07/07/24 14:55 STATUS: SHANICE RECedric #: [id number] DANNY: 07/07/24 13:[address]: Kiran Mejía DEPT: CYTOLOGY RECD BY: Rich Cox ENTERED: 07/08/24 09:05 SP TYPE: Fluid OTHR DR: Dr. Mauro Heredia MD Tissues: A - Thyroid gland, NOS B - Thyroid gland, NOS Procedures: Special Stain Group II Surgery Specimen Level IV Cytospin Fluid HEADER OPERATION: Fine needle aspiration of right thyroid nodule PRE-OP DIAGNOSIS: Right thyroid nodule TISSUE SUBMITTED: A. Right thyroid nodule, fluid, B. Right thyroid nodule, slides DIAGNOSIS CYTOLOGY A. Right thyroid nodule fluid, fine needle aspiration (cytospins and cellblock): Negative for malignant cells. See comment. B. Right thyroid nodule, fine needle aspiration (smears): Non-diagnostic specimen, Gully Category I. See comment. 07/11/2024 COMMENT A. Follicular cells are not seen. B. The specimen consists of scant amount of colloid. Adequate number of follicular cells are not seen Correlation with clinical, radiologic findings and appropriate follow up are necessary. The Gully System for thyroid diagnostic categorization was used in the evaluation of this case. CYTOLOGY STUDY Slides are reviewed. CYTOLOGY GROSS A. Received is 30 ml of red fluid with particles labeled with the patient's name and and designated per the requisition as right thyroid nodule. Submitted for cytology preparation including cell block. B. Received are 4 smears labeled with the patient's name and designated per the requisition as right thyroid nodule. Submitted for staining. /JOSAFAT:werner 07/08/24 TC:Can not code CPT: 08299g6, 93642
== END | disposition home or self-care (01) ==
LOC: LABSPEC 15:01
PROVIDERS: PCP Family Medicine; Referring Provider Surgery; Visit Provider Surgery
DX: E04.1 Nontoxic single thyroid nodule (principal)
CPT/HCPCS: 88108; 88305; 88313